=== PATIENT | female | born 1990 | race Caucasian/White ===

== ENCOUNTER 2024-12-08 12:37 | Outpatient (CLI) | payer BC, SELFPAY ==
--- OUTSIDE RECORDS SUMMARY | 2024-12-08 12:40 | XMS_ITS | Clinical Summary ---
Author Organization [facility] Address [address] [place] [address] Care Team Providers Care Corporate Manager Name Role Phone Unavailable Primary Care Provider Unavailabl e Social History Tobacco Use Types Packs/Day Years Used Date Smoking Tobacco: Never Assessed Comments Unknown Sex and Gender Information Value Date Recorded Sex Assigned at Not on file Legal Sex Female 9:44 PM CDT Gender Identity Not on file Sexual Orientation Not on file Plan of Treatment Health Maintenance Due Date Last Done Comments Hepatitis C Virus (HCV) Screening 1989 TdaP Immunization 1989 Pap Smear 2010 Cervical Cancer Screening (CCS) 2019 HPV/Cotest 2019 Influenza Immunization (#1) 2024 SARS-COV-2 Immunization ( season) 2024 Respiratory Syncytial Virus (RSV) Immunization (Adult) (1 - 1-dose 75+ series) 2064 DTaP/Tdap/Td Immunization Discontinued 1993, 02/24/1991, 12/06/1990, Additional history exists Hepatitis B Immunization Completed 997, 04/03/1996, 02/26/1996 Meningococcal Immunization (ACWY) Aged Out No longer eligible based on patient's age to complete this topic Pneumococcal Immunization Combined Aged Out No longer eligible based on patient's age to complete this topic Rotavirus Immunization Aged Out No lo nger eligible based on patient's age to complete this topic
--- OUTSIDE RECORDS SUMMARY | 2024-12-08 12:40 | XMS_ITS | Referral Summary ---
Author Organization [facility] Address [address] [place] [address] Care Team Providers Care Internal Salesperson Name Role Phone Karlie Reyes Unavailable Enrique Hurtado DO Unavailable [phone] Kory Lucio MD Unavailable [phone] Lona Diamond NP Primary Care Provider [phone] Encounters Date Type Department Care Team Description 11/26/2024 3:15 PM CDT Telemedicine [facility] Surgery [address] [place] [address] Medical Office Building [address] [place] [address] Kory Lucio MD Colostomy care (HCC) (Primary Dx) from Last 3 Months Allergies No known active allergies Medications metoprolol tartrate (LOPRESSOR) 25 mg immediate release tabletIndicatio ns:hypertension Take 12.5 mg by mouth 2 (two) times a day 1 Active ibuprofen (ADVIL,MOTRIN) 600 mg tabletIndicatio ns:Pain Take 600 mg by mouth every 8 (eight) hours as needed for pain. Indications: pain Active ferrous sulfate 325 mg (65 mg of elemental iron) tabletIndicatio ns:Iron Deficiency Anemia Take 65 mg of elemental iron by mouth daily with breakfast. Indications: anemia from inadequate iron Active Vraylar 1.5 mg capsule Take 1.5 mg by mouth daily 3 Active disulfiram (Antabuse) 250 mg tabletIndicatio ns:alcoholism Take 1 tablet (250 mg total) by mouth daily 30 tablet 1 3 Active ostomy supplies misc Patient has a parastomal hernia and needs a Coloplast Brava support belt 79476 1 each 6 3 Active Active Problems Problem Noted Date Diagnosed Date Colostomy care 10/25/2022 Screening for diabetes mellitus 09/11/2022 Absolute anemia 09/11/2022 Alcohol dependence, uncomplicated 03/01/2022 Alcohol abuse 01/16/2022 Assessment & Plan (03/01/2022 10:59 AM CDT): Continue with antabuse, advised her to continue to abstain from alcohol. Encouraged her to follow up with her psychiatrist, discuss her overeating and medications to evaluate for potential hindrances to her attempts at weight management. Assessment & Plan (01/16/2022 8:33 PM CDT): Will initiate antabuse. She was advise that she cannot drink any alcohol while taking antabuse. She was advised to arrange appt with a psychiatrist - she will be provided with a list of local providers and pursue an appt. Cyst of ovary 01/16/2022 Assessment & Plan (01/16/2022 8:33 PM CDT): We reviewed recent abdominal US and ct from ER Advised transvaginal US and pap smear - appt for pap made while on video call Severe episode of recurrent major depressive disorder, without psychotic features 01/16/2022 Assessment & Plan (01/16/2022 8:34 PM CDT): She was advised continued appts with psychiatrist - she declines medication at this time. Gastroesophageal reflux disease without esophagi tis 12/12/2021 Irritable bowel syndrome 12/12/2021 Posttraumatic stress disorder 12/12/2021 Restless legs 12/12/2021 Abdominal bloating 12/12/2021 Assessment & Plan (01/16/2022 8:32 PM CDT): We reviewed recent abdominal US and ct from ER Will communicate with Dr. Bass for his review of imaging, advised her to continue to work with his office regarding symptoms Advised transvaginal US and pap smear - appt for pap made while on video call Assessment & Plan (12/12/2021 10:33 AM CDT): Discussed potential etiologies. Will evaluate further with abd US - she will call and schedule at facility of choice. Encouraged cutting back on fiber as it may be contributing. Advised scheduling annual pap. Mild malnutrition 10/05/2021 Diverticulitis 08/17/2021 Vitamin D deficiency 09/27/2020 Obstructive sleep apnea 09/16/2020 Assessment & Plan (12/12/2021 10:32 AM CDT): Encouraged f/u appt with quill winder regarding settings of machine due to recent weight loss Anxiety 08/25/2020 Chronic fatigue syndrome 08/25/2020 BMI 60.0-69.9, adult 08/25/2020 Palpitations 08/25/2020 Assessment & Plan (12/12/2021 10:32 AM CDT): Continue with lopressor at this time Nicotine dependence, unspecified, uncomplicated 08/25/2020 Prediabetes 08/16/2020 Assessment & Plan (12/12/2021 10:32 AM CDT): Fasting labs entered, will notify patient of results as available Encouraged continued attempts at heart healthy diet, weight loss Major depressive disorder, single episode, unspe cified 11/25/2019 Dyslipidemia 07/21/2019 Assessment & Plan (12/12/2021 10:31 AM CDT): Fasting labs entered, will notify patient of results as available Resolved Problems Problem Noted Date Diagnosed Date Resolved Date Schizoaffective disorder, depressive type 12/12/2021 12/12/2021 Bradycardia 09/28/2020 12/12/2021 Tachycardia 08/25/2020 12/12/2021 Hypertension 11/09/2015 12/12/2021 Immunizations Immunization Administration Dates Next Due Influenza, Unspecified 09/11/2022(Deferr ed: Patient Refused),08/10/2021(Deferred: Patient Refused) Social History Tobacco Use Types Packs/Day Years Used Date Smoking Tobacco: Every Day Cigarettes Vaping Smokeless Tobacco: Never Tobacco Cessation:Ready to Q uit: Not Asked; Counseling Given: Not Answered Alcohol Use Standard Drinks/Week Comments Yes 0 (1 standard drink = 0.6 oz pur e alcohol) socially Social Connection and Isolation Panel [NHANES] A nswer Date Recorded In a typical week, how many times do you talk on the phone with family, friends, or neighbors? Three times a week 10/04/19 How often do you get togethe r with friends or relatives? Twice a week 10/03/2021 How often do you attend chur ch or congregational services? 1 to 4 times per year 10/03/2021 Do you belong to any clubs o r organizations such as mosque groups, unions, fraternal or athletic groups, or school groups? No 10/03/2021 How often do you attend meet ings of the clubs or organizations you belong to? Never 10/03/2021 Are you , , di vorced, , never , or living with a partner? Never 10/03/2021 AUDIT-C Answer Date Recorded Q1: How often do you have a drink containing alcohol? 4 or more times a week 09/11/2022 Q2: How many drinks containi ng alcohol do you have on a typical day when you are drinking? 5 or 6 Q3: How often do you have si x or more drinks on one occasion? Monthly 09/11/2022 Overall Financial Resource Strain (CARDIA) Answe r Date Recorded How hard is it for you to pa y for the very basics like food, housing, medical care, and heating? Somewhat hard 10/03/2021 PHQ-2 Answer Date Recorded PHQ-2 Total Score (If total score is 3 or more points, staff should administer the PHQ-9) 4 09/11/2022 Hunger Vital Sign Answer Date Recorded Within the past 12 months, y ou worried that your food would run out before you got the money to buy more. Never true 10/04/19 22 Within the past 12 months, t he food you bought just didn't last and you didn't have money to get more. Never true 10/03/2021 PRAPARE - Transportation Answer Date Re corded In the past 12 months, has l ack of transportation kept you from medical appointments or from getting medications? No 09/07 In the past 12 months, has l ack of transportation kept you from meetings, work, or from getting things needed for daily living? No 10/03/2021 Comments No Sex and Gender Information Value Date Recorded Sex Assigned at Not on file Legal Sex Female 9:02 AM INFORMATION TECHNOLOGY MANAGER Gender Identity Not on file Sexual Orientation Not on file Last Filed Vital Signs Vital Sign Reading Time Taken Comments Blood Pressure 168/115 10/25/2022 9:58 AM CDT Pulse 73 10/25/2022 9:58 AM CDT Temperature 37.3 C (99.1 F) 09/11/2022 8:12 AM INFORMATION TECHNOLOGY MANAGER Respiratory Rate 18 01/19/2022 1:08 PM CDT Oxygen Saturation 99% 10/25/2022 9:58 AM CDT Inhaled Oxygen Concentration - - Weight 179.2 kg (395 lb) 10/25/2022 9:58 AM CDT Height 170.2 cm (5' 7) 10/25/2022 9:58 AM CDT Body Mass Index 61.87 10/25/2022 9:58 AM CDT Plan of Treatment Not on file Insurance [facility] [place] [address] [facility] [employer] [facility] Advance Directives For more information, please contact: [phone] * Full Code (Latest Code Status on File) Date Activated Date Inactivated Comments 11/04/2021 3:35 PM 11/11/2021 8:56 PM * Full Code Date Activated Date Inactivated Comments 09/30/2021 12:52 PM 10/09/2021 5:00 PM * Full Code Date Activated Date Inactivated Comments 09/08/2021 1:07 AM 09/14/2021 5:41 PM Care Teams Internal Salesperson Relationship Specialty Start Date End Date Lona Diamond NP [address] [place] [address] PCP - General Internal Medicine 08/15/22 Karlie Reyes PA Ground Host/Hostess 10/31/21 Enrique Hurtado DO [address] [place] [address] Referring Physician Surgery 08/30/21 Kory Lucio MD [address] [facility] [address] [place] [address] Surgeon Colon and Rectal Surgery 10/20/21
--- OUTSIDE RECORDS SUMMARY | 2024-12-08 12:40 | XMS_ITS | Continuity of Care Document ---
Author Organization [facility] Address [address] [place] [address] [place] [address] Phone Care Team Providers Care Chef Head Name Role Phone Kofi Zacarias MD Unavailable Unavailable Allergies, Adverse Reactions, Alerts Substance Reaction Status Criticality No Known Allergies Active No Inform ation Medications Medication Instructions Dosage Effective Dates (start - stop) Status Comments Norvasc 10 mg tablet take 1 tablet by or al route every day 10 MG - Active Procedures Procedure Date OFFICE/OUTPATIENT VISIT, EST OFFICE/OUTPATIENT VISIT, EST PREV VISIT, NEW, AGE 18-39 Advance Directives Directive Yes / No Effective Date File Name No Information Encounters Encounter Description Practice Location Reason(s) For Visit Diagnoses Date Provider Providers Copied on Encounter OFFICE/OUTPA TIENT VISIT, EST [facility], [address], [place], [place], [id number], [place] tel:[phone] [facility] HTN (chief complaint) hematuria1 (chief complaint) fatty liver (chief complaint) Essential (primary) hypertensionHematur iaFatty liver Oct-2 0 6 [address], [place], [id number] , [place]. tel:[phone] Referring Provider: Kofi Zacarias, [address], [place], [place], [id number]. tel:[phone] [facility], [address], [place], [place], [id number], [place] tel:[phone] [facility] No Information [address], [place], [place], [id number] , [place]. tel:[phone] OFFICE/OUTPA TIENT VISIT, EST [facility], [address], [place], [place], [id number], [place] tel:[phone] [facility] chest pain1 (chief complaint) HTN1 (chief complaint) LFT1 (chief complaint) depression 1 (chief complaint) Other chest painEssential (primary) hypertensionLiver disease, unspecifiedHematuri a [address], [place], [place], [id number] , [place]. tel:[phone] Referring Provider: Reji Esparza Erika [facility] [address], [place], [place], [id number]. tel:[phone] PREV VISIT, NEW, AGE 18-39 [facility], [address], [place], [place], [id number], [place] tel:[phone] [facility] PHysical (chief complaint) Dietary surveillance and counselingRoutine medical exam [address], [place], [place], [id number] , [place]. tel:[phone] Referring Provider: Reji Esparza Erika [facility] [address], [place], [place], [id number]. tel:[phone] Family History Family Member Type Diagnosis Age At Onset Brother Problem (finding) Alive and well Mother Problem (finding) Diabetes mellitus type 2 Father Problem (finding) Unknown Payers Payer name Insurance type Covered green party ID Authoriza tion(s) No Information Social History Type Description Quantity Date Captured Comments Alcohol Use Details Caffeine Use Details Unknown Tobacco Use Status Moderate cigarette smoker (10-19 cigs/day) Smoking Status Heavy tobacco smoker Smoking Tobacco Use Details Cigarette: No Details Available Cigarette: 10 Cigarettes per day Sex Female Vital Signs Date / Time: Height Weight BMI Pulse Rate Blood Pressure Temperature Respiratory Rate Body Surface Area Head Circumference BMI percentile Pulse Ox Inhaled Ox 9:44 AM 171.45 cm 373.00 lbs 57.5 6 kg/m eter (2) 100 /min 130/82 mm[Hg] 96.3 F 20 /min Chief Complaint And Reason For Visit From encounter dated '10/27/2015 08:30'. HTN (chief complaint). Description: Pt has histor of HTN. Pt recently went to Er and her BP was mildly high. Pt continues to have intermittent nonexertional chest pain. Pt lost her insurance and she never followed up with cardiology. Pt denies any acute chest pain. Pt c/o sharp pain around midsternal area 2-3 per week. hematuria1 (chief complaint). Description: Pt denies any UTI symptoms fatty liver (chief complaint). Description: Pt has fatty liver due to obesity. Pt denies any abd pain Plan Of Treatment Date Type Action Status Referral Ordered: Cardiology (related to Other chest pain) ordered Referral Ordered: US EXAM, ABDOM, COMPLETE ordered Referral Ordered: Referrals: Cardiology. Evaluate and treat ordered Referral Ordered: DOPPLER ECHO EXAM, HEART ordered History Of Present Illness Encounter Date Complaint History Of Prese nt Illness HTN Pt has histor of HTN. Pt recently went to Er and her BP was mildly high. Pt continues to have intermittent nonexertional chest pain. Pt lost her insurance and she never followed up with cardiology. Pt denies any acute chest pain. Pt c/o sharp pain around midsternal area 2-3 per week. hematuria1 Pt denies any UT I symptoms fatty liver Pt has fatty cathi er due to obesity. Pt denies any abd pain chest pain1 Pt has intermitt net sharp left side chest pain and also dull right side chest pain with radiation down to both arm for several years. pt had benign cardaiac echo recently. Howver, she does have poor peneration due to body habitus. Pt denies any chest pain now. Pt has chest pain during anxiety per pt HTN1 Pt has HTN and s he is on norvasc. Her BP ok today LFT1 Pt has mild elev ation of LFT and low vitamin D and hematuria. Pt denies any UTI symptoms depression1 Pt recently admi hilaria to hospital for depression and suiciadl thought. Pt is on celexa now. Pt denies any suicidal thought. Pt has appointment with psychiatry soon. PHysical 25 yo female nee ds annual physical. Pt is obese. Pt gained about 100 pounds during last two years. Pt feels fatigue all the time. Pt denies any snorning or trouble with breathing at night. pt wants physical. Pt had some atypical chest pain back in February but has not had it for several weeks. Pt denies any exertaionl chest pain. Pt notices sharp pain around midsternal area. Pt notices radiation of pain to both shoudler. Pt did have a lot of anxiety issue during that period. Pt has not had any chest pain since midaugust Pt denies any other complaints Instructions Date Instruction Additional Infor oni Prescribed Activity and Exercise Education Related to Dietary Surveillance and Counseling Prescribed Diet Educ ation/Lifestyle Education Regarding Diet Related to Dietary Surveillance and Counseling Prescribed Activity and Exercise Education Related to Dietary Surveillance and Counseling Prescribed Diet Educ ation/Lifestyle Education Regarding Diet Related to Dietary Surveillance and Counseling Assessments Type Assessment Date assessment Essential (primary) hypertension assessment Hematuria assessment Fatty liver Mental Status Date Cognitive Assessment Orientation - [place] ed to time, place, person, situation.
--- OUTSIDE RECORDS SUMMARY | 2024-12-08 12:40 | XMS_ITS | Clinical Summary ---
Author Organization [facility] Address [address] [place] [address] Care Team Providers Care Promotions Assistant Name Role Phone Karlie Reyes Unavailable [phone] Enrique Hurtado DO Unavailable [phone] Kory Lucio MD Unavailable [phone] Lona Diamond NP Primary Care Provider [phone] Allergies No known active allergies Medications metoprolol [...] and needs a Coloplast Brava support belt 57864 1 each 6 3 Active Active Problems [...] Discussed potential etiologies. Will evaluate further with yaneth US - she will call and schedule at facility of choice. Encouraged cutting back on fiber as it may be contributing. Advised scheduling annual pap. Mild malnutrition 10/05/2021 Diverticulitis 08/17/2021 Vitamin D deficiency 09/27/2020 Obstructive sleep apnea 09/16/2020 Assessment & Plan (12/12/2021 10:32 AM CDT): Encouraged f/u appt with development trainer regarding settings of machine due to recent [...] 12/12/2021 Tachycardia 08/25/2020 12/12/2021 Hypertension 11/09/2015 12/12/2021 Encounters Date Type Department Care Team Description 11/26/2024 3:15 PM CDT Telemedicine [facility] Surgery [address] [place] [address] Medical Office Building [address] [place] [address] Kory Lucio MD Colostomy care (HCC) (Primary Dx) from Last 3 Months Immunizations Immunization Administration Dates Next Due Influenza, Unspecified 09/11/2022(Deferr ed: Patient Refused),08/10/2021(Deferred: Patient Refused) Surgical History Surgery Date Site/Laterality Comments CENTRAL LINE PLACEMENT > 5 YEARS 10/05/2021 N/A COLECTOMY CYSTOGRAM Medical History Medical History Date Comments Hx Other Medical back pain; Comm ents: DWL 01/06/2016 - Depression Depression Hypertension Hypertension Type 2 diabetes mellitus wit hout complication (HCC) 08/16/2020 Anxiety Sleep apnea Family History Medical History Relation Name Comments Mental illness Brother Mental illness Father Mental illness Maternal Grandfather Cancer Maternal Grandmother Diabetes Maternal Grandmother Mental illness Maternal Grandmother Diabetes Mother Mental illness Mother Relation Name Status Comments Brother Father Maternal Grandfather Maternal Grandmother Mother Social History Tobacco Use Types Packs/Day Years [...] 10/03/2021 How often do you attend chur or scientologist services? 1 to 4 times per year 10/03/2021 Do you belong to any clubs o r organizations such as restorationist groups, unions, fraternal or athletic groups, or [...] on file Legal Sex Female 9:02 AM BAND RIPSAW OPERATOR Gender Identity Not on file Sexual Orientation Not on file Obstetrics History Last Filed Vital Signs Vital Sign Reading Time Taken Comments Blood Pressure 168/115 10/25/2022 9:58 AM CDT Pulse 73 10/25/2022 9:58 AM CDT Temperature 37.3 C (99.1 F) 09/11/2022 8:12 AM BAND RIPSAW OPERATOR Respiratory Rate 18 01/19/2022 1:08 PM CDT Oxygen Saturation 99% 10/25/2022 9:58 AM CDT Inhaled Oxygen Concentration - - Weight 179.2 kg (395 lb) 10/25/2022 9:58 AM CDT Height 170.2 cm (5' 7) 10/25/2022 9:58 AM CDT Body Mass Index 61.87 10/25/2022 9:58 AM CDT Plan of Treatment Health Maintenance Due Date Last Done Comments Cervical Cancer Screening 1989 Hepatitis C Screening 1989 DTaP/Tdap/Td Vaccine (5 - Tdap) 2000 02/14/1994, 02/24/1991, 12/06/1990, Additional history exists Varicella Vaccines (1 of 2 - 13+ 2-dose series) 2002 Pneumococcal vaccine <65 (1 of 2 - PCV) 2008 Depression Screening 09/12/2023 09/11/2022, 09/11/2022, 01/16/2022, Additional history exists Regular Well Visit/Exam 18-64 09/12/2023 09/11/2022 Influenza Vaccine (Season Ended) 2025 Hepatitis B Screening Completed 08/28/1996 , 04/03/1996, 02/26/1996 HPV Vaccines Aged Out No longer eligi ble based on patient's age to complete this topic Insurance [facility] MEDICAID [facility] Advance Directives For more information, please contact: [phone] * Full Code (Latest Code Status on File) Date Activated Date Inactivated Comments 11/04/2021 3:35 PM 11/11/2021 8:56 PM * Full Code Date Activated Date Inactivated Comments 09/30/2021 12:52 PM 10/09/2021 5:00 PM * Full Code Date Activated Date Inactivated Comments 09/08/2021 1:07 AM 09/14/2021 5:41 PM Care Teams Promotions Assistant Relationship Specialty Start Date End Date Lona Diamond NP [address] [place] [address] PCP - General Internal Medicine 08/15/22 Karlie Reyes PA Bellhop Service Captain 10/31/21 Enrique Hurtado DO [address] [place] [address] Referring Physician Surgery 08/30/21 Kory Lucio MD [address] [place] [address] Surgeon Colon and Rectal Surgery 10/20/21
[2024-12-08 15:54] LABS: Kit Draw Collected
== END 2024-12-08 12:38 | disposition home or self-care (01) ==
LOC: ANHGOSHLAB 12:38
PROVIDERS: PCP Student in an Organized Health Care Education/Training Program; Visit Provider Student in an Organized Health Care Education/Training Program
DX: F10.20 Alcohol dependence, uncomplicated (principal); I10 Essential (primary) hypertension; E66.9 Obesity, unspecified; Z13.0 Encounter for screening for diseases of the blood and blood-forming organs and certain disorders involving the immune mechanism
CPT/HCPCS: 36415

== ENCOUNTER 2025-03-12 09:06 | Outpatient (CLI) | payer BC, SELFPAY ==
--- OUTSIDE RECORDS SUMMARY | 2025-03-12 09:20 | XMS_ITS | Clinical Summary ---
Author Organization [facility] Address [address] [place] [address] Care Team Providers Care Coal Chute Worker Name Role Phone Karlie Reyes Unavailable [phone] Enrique Hurtado DO Unavailable [phone] Kory Lucio MD Unavailable [phone] Lona Diamond NP Primary Care Provider [phone] Allergies No known active allergies Medications metoprolol [...] and needs a Coloplast Brava support belt 01177 1 each 6 3 Active Active Problems [...] potential etiologies. Will evaluate further with yaneth MADISON - she will call and schedule at facility of choice. Encouraged cutting back on fiber as it may be contributing. Advised scheduling annual pap. Mild malnutrition 10/05/2021 Diverticulitis 08/17/2021 Vitamin D deficiency 09/27/2020 Obstructive sleep apnea 09/16/2020 Assessment & Plan (12/12/2021 10:32 AM CDT): Encouraged f/u appt with speech coach regarding settings of machine due to recent [...] alcohol) socially Social Connection and Isolation Panel Answer Date Recorded In a typical week, how many times do you talk on the phone with family, friends, or neighbors? Three times a week 10/04/19 How often do you get togethe r with friends or relatives? Twice a week 10/03/2021 How often do you attend [facility] or sabianist services? 1 to 4 times per year 10/03/2021 Do you belong to any clubs o r organizations such as presybeterian groups, unions, fraternal or athletic groups, or [...] on file Legal Sex Female 9:02 AM KITCHEN WORKER Gender Identity Not on file Sexual Orientation Not on file Obstetrics History Last Filed Vital Signs Vital Sign Reading Time Taken Comments Blood Pressure 168/115 10/25/2022 9:58 AM CDT Pulse 73 10/25/2022 9:58 AM CDT Temperature 37.3 C (99.1 F) 09/11/2022 8:12 AM KITCHEN WORKER Respiratory Rate 18 01/19/2022 1:08 PM CDT [...] <65 (1 of 2 - PCV) 2008 HPV Vaccines (1 - 3-dose SCD M series) 2016 Depression Screening 09/12/2023 09/11/2022, 09/11/2022, 01/16/2022, Additional history exists Regular Well Visit/Exam 18-64 09/12/2023 09/11/2022 Influenza Vaccine (#1) 2025 Hepatitis B Screening Completed 08/28/1996 , 04/03/1996, 02/26/1996 Insurance [facility] MEDICAID [facility] ANTH ACCESS [facility] Advance Directives For more information, please contact: [phone] * Full Code (Latest Code Status on File) Date Activated Date Inactivated Comments 11/04/2021 3:35 PM 11/11/2021 8:56 PM * Full Code Date Activated Date Inactivated Comments 09/30/2021 12:52 PM 10/09/2021 5:00 PM * Full Code Date Activated Date Inactivated Comments 09/08/2021 1:07 AM 09/14/2021 5:41 PM Care Teams Coal Chute Worker Relationship Specialty Start Date End Date Lona Diamond [employer]ARM[employer] [address] [place] [address] PCP - General Internal Medicine 08/15/22 Karlie Reyes PA Underwriting Account Representative 10/31/21 Enrique Hurtado DO [address] [facility] [address] [place] [address] Referring Physician Surgery 08/30/21 Kory Lucio MD [address] [facility] [address] [place] [address] Surgeon Colon and Rectal Surgery 10/20/21
--- OUTSIDE RECORDS SUMMARY | 2025-03-12 09:20 | XMS_ITS | Patient Health Record ---
Author Organization [facility] Address [address] [place] [address] Care Team Providers Care Shore Working Supervisor Name Role Phone Hannah Delaney Primary Care Provider Allergies No Known Allergies Reason For Referral No Information Medications Medication SIG (Take, Route, Frequency, Duration) Notes Start Date End Date Status Vraylar 3 MG 1 capsule Orally Once a day; Duration: 30 days Active lamoTRIgine 25 MG 2 tablets Orally Once a day; Duration: 14 days Pt needs appt Active Vraylar 3 MG TAKE 1 CAPSULE BY MOUTH EVERY DAY; Duration: 30 Active Ibuprofen 200 MG 3tablets with food or milk as needed Orally every 8 hrs OTC Active Metoprolol Tartrate 25 MG 0.5 tablet Ora lly Twice a day Active Famotidine 20 MG 1 tablet Orally Twice a day Active Acetaminophen 325 MG 2 tablets as needed Orally every 8 hrs OTC Active Phenazopyridine HCl Active Tums 500 MG 1 tablet as needed Orally Once a day Active Social History Tobacco Use: Social History Observation Description Date Details (start date - stop date) Current Smoker NA - NA Sex Assigned At : Social History Observation Description Sex Assigned At Female Dont use, Tobacco Use/Smoking Question Answer Notes Are you a current smoker How often do you smoke cigarettes? every day How many cigarettes a day do you smoke? 6-10 Alcohol Screen (Audit-C) Question Answer Notes Did you have a drink containing alcohol in the p ast year? No Points 0 Interpretation Negative PRAPARE Question Answer Notes PRAPARE Score: 1 Section Notes: how 10 entries Search: PRESCRIPTION # FILLED WRITTEN DRUG LABEL QTY DAYS STRENGTH MEDD PRESCR[facility] REFILL NO. REFILLS STATE 12/01/2021 12/01/2021 traMADol 15.0 3 50 MG 25 Kory Lucio) - [id number] [place], [place] NA 0 [place] 1 [id number] 11/17/2021 11/17/2021 oxyCODONE HCL 15.0 3 10 MG 75.0 Kory Lucio) - [id number] No recent per PDMP Problems Problem Type SNOMED Code ICD Code Onset Dates Problem Status W/U Status Risk Notes Problem Morbid obesity (disorder) (355892269) Morbid (severe) obesity due to excess calories (E66.01) Active confirmed Problem Tobacco user (511306448) Nicotine dependence, unspecified, uncomplicated (F17.200) Active confirmed Problem Palpitations (42729154) Palpitations (R00.2) Active confirmed Problem Hypertension (65923666) Hypertension (I10) 016 Active confirmed Problem Depression (715017762) Depression (F32.9) 020 Active confirmed Problem Alcohol abuse (49865780) Alcohol abuse (F10.10) Active confirmed Problem Posttraumatic stress disorder (47473273) PTSD (post-traumatic stress disorder) (F43.10) Active confirmed Problem Anxiety (18974676) Anxiety (F41.9) Active confi rmed Problem Vitamin D deficiency (48104636) Vitamin D deficiency (E55.9) Active confirmed Problem Obstructive sleep apnea (24727792) Obstructive sleep apnea (G47.33) Active confirmed Problem Dyslipidemia (600611204) Dyslipidemia (E78.5) 020 Active confirmed Problem Chronic fatigue syndrome (17761982) Chronic fatigue (R53.82) Active confirmed Problem Bipolar disorder (49604959) Bipolar 1 disorder, depressed (F31.9) Active confirmed Problem Type II diabetes mellitus without complication (210712311) Type 2 diabetes mellitus without complication, without long-term current use of insulin (E11.9) 021 Active confirmed Problem Gastroesophageal reflux disease without esophagitis (457815302) Gastroesophageal reflux disease without esophagitis (K21.9) Active confirmed Problem Tobacco use (965874282) Tobacco use disorder (F17.200) Active confirmed Problem Irritable bowel syndrome (80347267) Irritable bowel syndrome with both constipation and diarrhea (K58.2) Active confirmed Problem Restless legs (76659579) Restless leg (G25.81) Active confirmed Plan Of Treatment Pending Test Test Name Order Date At Home SARS-CoV-2, JASPER 05/30/2021 At Home SARS-CoV-2, JASPER 03/13/2022 At Home SARS-CoV-2, JASPER 03/27/2022 Future Test Test Name Order Date Testosterone,Free and Total 08/11/2020 Hemoglobin A1c* 08/11/2020 Prolactin 08/11/2020 CBC With Differential/Platelet* 08/11/19 21 FSH and LH 08/11/2020 Vitamin D, 25-Hydroxy* 08/11/2020 Lipid Panel* 08/11/2020 CMP 14 Comprehensive Metabolic Panel* TSH Rfx on Abnormal to Free T4 1 Electrocardiogram (EKG) 09/01/2020 Insurance Providers Payer Name Payer Address Payer Phone Subscriber Number Group Number Insured Name Patient Relationship to Insured Coverage Start Date Coverage End Date [employer] [facility] Attn Claims Department [address] [place] [address] [id number] Yahaira Thomas Self - patient is the insured 1 [employer] Attn Claims Department [address] [place] [id number] Yahaira Thomas Self - patient is the insured 1 Medical (General) History Medical History History ICD Code Hypertension Bipolar disorder obesity Knee pain, left M25.562 Obstructive sleep apnea G47.33 Gastroesophageal reflux disease without esophagitis K21.9 Type 2 diabetes mellitus wit hout complication, without long-term current use of insulin E11.9 Irritable bowel syndrome with both const ipation and diarrhea K58.2 Surgical History Surgery Date(Month/Year) Colon Resection [facility] 10/2021 Hospitalization History Reason Date(Month/Year) Diverticulitis-[facility] 3 stays in September [address] [place] [address] after suicide attempt 1
--- OUTSIDE RECORDS SUMMARY | 2025-03-12 09:20 | XMS_ITS | Clinical Summary ---
Author Organization [facility] Address [address] [place] [address] Care Team Providers Care Catch Basin Cleaner Name Role Phone Unavailable Primary Care Provider [...] 1989 TdaP Immunization 1989 Pap Smear 2010 Human Papillomavirus (HPV) Immunization (1 - 3-dose SCDM series) 2016 Cervical Cancer Screening (CCS) 2019 HPV/Cotest 2019 SARS-COV-2 Immunization ( season) 2024 Influenza Immunization (#1) 2025 Respiratory Syncytial Virus (RSV) Immunization (Adult) (1 [...]
== END 2025-03-12 09:07 | disposition home or self-care (01) ==
LOC: ANHGOSHLAB 09:07
PROVIDERS: PCP Student in an Organized Health Care Education/Training Program; Visit Provider Student in an Organized Health Care Education/Training Program
DX: E11.69 Type 2 diabetes mellitus with other specified complication (principal); E78.5 Hyperlipidemia, unspecified; R79.89 Other specified abnormal findings of blood chemistry; E66.813 Obesity, class 3; Z68.43 Body mass index [BMI] 50.0-59.9, adult; D50.9 Iron deficiency anemia, unspecified
CPT/HCPCS: 36415

== ENCOUNTER 2025-03-12 09:26 | Outpatient (CLI) | payer BC, SELFPAY ==
--- NOTE | ~2025-03-12 | XR_ITS ---
Examination: XR thoracic spine 3V Clinical History: Low back pain, unspecified, pain x 3 months, fall in december Comparison: CT abdomen and pelvis 12/12/2021 Technique: 2 views thoracic spine Findings: Visualized heart and lungs unremarkable. Trace anterior wedge deformity of T9 and T10 unchanged. No acute fracture. No listhesis. Minimal degenerative changes. IMPRESSION: 1. No acute abnormality. Reviewed, dictated and finalized at location R. IMPRESSION: 1. No acute abnormality.
--- NOTE | ~2025-03-12 | XR_ITS ---
Lumbar spine series Indication: Low back pain Comparison: CT abdomen and pelvis 12/12/2021 Technique: 5 views lumbar spine Findings: 5 nonrib-bearing lumbar-type vertebral bodies. No acute fracture. No listhesis. No pars defect. Vertebral bodies normal height. Disc spaces maintained. Mild degenerative changes. SI joints congruent. Sacrum intact. IMPRESSION: 1. No acute findings. Reviewed, dictated and finalized at location R. IMPRESSION: 1. No acute findings.
== END 2025-03-12 09:27 | disposition home or self-care (01) ==
PROVIDERS: PCP Student in an Organized Health Care Education/Training Program; Visit Provider Student in an Organized Health Care Education/Training Program
DX: M54.50 Low back pain, unspecified (principal)
CPT/HCPCS: 72072; 72110

== ENCOUNTER 2025-03-30 01:24 | Observation (INO) | payer BC, SELFPAY ==
[2025-03-30] VITALS (22 sets, daily range): BP systolic 130–169; BP diastolic 72–113; PULSE 63–115; RESP 14–24; TEMP 36.6–37.2; O2SAT 94–100; BMI 50.6
--- OUTSIDE RECORDS SUMMARY | 2025-03-30 01:27 | XMS_ITS | Patient Health Record ---
Author Organization [facility] Address [address] [place] [address] Care Team Providers Care Celery Wrapper Name Role Phone Hannah Delaney Primary Care [...] 3 50 MG 25 Kory Lucio) - [id number] [place], [place] NA 0 [place] 1 [id number] 11/17/2021 11/17/2021 oxyCODONE HCL 15.0 3 10 MG 75.0 Kory Lucio) - [id number] No recent per PDMP Problems Problem Type SNOMED Code ICD Code Onset Dates Problem Status W/U Status Risk Notes Problem Morbid obesity (disorder) (537473132) Morbid (severe) obesity due to excess calories (E66.01) Active confirmed Problem Tobacco user (573776403) Nicotine dependence, unspecified, uncomplicated (F17.200) Active confirmed Problem Palpitations (93262291) Palpitations (R00.2) Active confirmed Problem Hypertension (29751568) Hypertension (I10) 016 Active confirmed Problem Depression (227261702) Depression (F32.9) 020 Active confirmed Problem Alcohol abuse (79236268) Alcohol abuse (F10.10) Active confirmed Problem Posttraumatic stress disorder (02224795) PTSD (post-traumatic stress disorder) (F43.10) Active confirmed Problem Anxiety (39959632) Anxiety (F41.9) Active confi rmed Problem Vitamin D deficiency (78124514) Vitamin D deficiency (E55.9) Active confirmed Problem Obstructive sleep apnea (01474821) Obstructive sleep apnea (G47.33) Active confirmed Problem Dyslipidemia (463732923) Dyslipidemia (E78.5) 020 Active confirmed Problem Chronic fatigue syndrome (47302848) Chronic fatigue (R53.82) Active confirmed Problem Bipolar disorder (06899120) Bipolar 1 disorder, depressed (F31.9) Active confirmed Problem Type II diabetes mellitus without complication (557505010) Type 2 diabetes mellitus without complication, without long-term current use of insulin (E11.9) 021 Active confirmed Problem Gastroesophageal reflux disease without esophagitis (895833722) Gastroesophageal reflux disease without esophagitis (K21.9) Active confirmed Problem Tobacco use (481491857) Tobacco use disorder (F17.200) Active confirmed Problem Irritable bowel syndrome (76653092) Irritable bowel syndrome with both constipation and diarrhea (K58.2) Active confirmed Problem Restless legs (85770129) Restless leg (G25.81) Active confirmed Plan Of [...] Insured Coverage Start Date Coverage End Date [employer] [facility] Attn Claims Department [address] [place] [address] [id number] Yahaira Thomas Self - patient is the insured 1 [employer] Attn Claims Department [address] [place] [phone] [id number] Yahaira Thomas Self - patient is the [...] K58.2 Surgical History Surgery Date(Month/Year) Colon Resection [facility] 10/2021 Hospitalization History Reason Date(Month/Year) Diverticulitis-[facility] 3 stays in September [address] [place] [address] after suicide attempt 1
--- OUTSIDE RECORDS SUMMARY | 2025-03-30 01:27 | XMS_ITS | Clinical Summary ---
Author Organization [facility] Address [address] [place] [address] Care Team Providers Care Secret Code Expert Name Role Phone Karlie Reyes Unavailable [phone] Enrique Hurtado DO Unavailable [phone] Kory Lucio MD Unavailable [phone] Lona Diamond NP Primary Care Provider [phone] Allergies No known active allergies Medications metoprolol [...] and needs a Coloplast Brava support belt 18095 1 each 6 3 Active Active Problems [...] 10:32 AM CDT): Encouraged f/u appt with hand booked folder and stitcher regarding settings of machine due to recent [...] week 10/03/2021 How often do you attend [facility] or holiness services? 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 Gender Identity Not on file Sexual Orientation Not on file Obstetrics History Last Filed Vital Signs Vital Sign Reading Time Taken Comments Blood Pressure 168/115 10/25/2022 9:58 AM CDT Pulse 73 10/25/2022 9:58 AM CDT Temperature 37.3 C (99.1 F) 09/11/2022 8:12 AM JEWEL CUPPING MACHINE OPERATOR Respiratory Rate 18 01/19/2022 1:08 PM [...] Screening Completed 08/28/1996 , 04/03/1996, 02/26/1996 Insurance [facility] MEDICAID [facility] ANTH ACCESS [facility] Advance Directives For more information, please contact: [phone] * Full Code (Latest Code Status on File) Date Activated Date Inactivated Comments 11/04/2021 3:35 PM 11/11/2021 8:56 PM * Full Code Date Activated Date Inactivated Comments 09/30/2021 12:52 PM 10/09/2021 5:00 PM * Full Code Date Activated Date Inactivated Comments 09/08/2021 1:07 AM 09/14/2021 5:41 PM Care Teams Secret Code Expert Relationship Specialty Start Date End Date Lona Diamond TELEVISION RECEIVER ANALYZER [address] [place] [address] PCP - General Internal Medicine 08/15/22 Karlie Reyes PA Screw Supervisor 10/31/21 Enrique Hurtado DO [address] [facility] [address] [place] [address] Referring Physician Surgery 08/30/21 Kory Lucio MD [address] [facility] [address] [place] [address] Surgeon Colon and Rectal Surgery 10/20/21
--- NOTE | 2025-03-30 01:33 | ECG_ITS ---
Test Date: 2025-03-30 01:54:27 Measurements Intervals [place] Rate: 94 P: 45 TX: 141 QRS: -9 QRSD: 93 T: 0 QT: 356 QTc: 447 Interpretive Statements SINUS RHYTHM MODERATE VOLTAGE CRITERIA FOR LVH, CONSIDER NORMAL VARIANT [MEETS CRITERIA IN ONE OF: R(aVL), S(V1), R(V5), R(V5/V6)+S(V1)] NONSPECIFIC T-WAVE ABNORMALITY No previous ECG available for comparison Electronically Signed On 03-30-2025 14:21:20 CDT by Tomás Mcmahan M.D.
--- OUTSIDE RECORDS SUMMARY | 2025-03-30 02:05 | XMS_ITS | Clinical Summary ---
Author Organization [facility] Address [address] [place] [address] Care Team Providers Care Section Crews Activities Clerk Name Role Phone Karlie Reyes Unavailable [phone] Enrique Hurtado DO Unavailable [phone] Kory Lucio MD Unavailable [phone] Lona Diamond NP Primary Care Provider [phone] Allergies No known active allergies Medications metoprolol [...] and needs a Coloplast Brava support belt 38863 1 each 6 3 Active Active Problems [...] 10:32 AM CDT): Encouraged f/u appt with address change clerk regarding settings of machine due to recent [...] week 10/03/2021 How often do you attend [facility] or scientology services? 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 Gender Identity Not on file Sexual Orientation Not on file Obstetrics History Last Filed Vital Signs Vital Sign Reading Time Taken Comments Blood Pressure 168/115 10/25/2022 9:58 AM CDT Pulse 73 10/25/2022 9:58 AM CDT Temperature 37.3 C (99.1 F) 09/11/2022 8:12 AM ACID PURIFICATION EQUIPMENT OPERATOR Respiratory Rate 18 01/19/2022 1:08 PM [...] Screening Completed 08/28/1996 , 04/03/1996, 02/26/1996 Insurance [facility] MEDICAID [facility] ANTH ACCESS [facility] Advance Directives For more information, please contact: [phone] * Full Code (Latest Code Status on File) Date Activated Date Inactivated Comments 11/04/2021 3:35 PM 11/11/2021 8:56 PM * Full Code Date Activated Date Inactivated Comments 09/30/2021 12:52 PM 10/09/2021 5:00 PM * Full Code Date Activated Date Inactivated Comments 09/08/2021 1:07 AM 09/14/2021 5:41 PM Care Teams Section Crews Activities Clerk Relationship Specialty Start Date End Date Lona Diamond ACTIVITIES MANAGER [address] [place] [address] PCP - General Internal Medicine 08/15/22 Karlie Reyes PA Security Analyst 10/31/21 Enrique Hurtado DO [address] [facility] [address] [place] [address] Referring Physician Surgery 08/30/21 Kory Lucio MD [address] [facility] [address] [place] [address] Surgeon Colon and Rectal Surgery 10/20/21
--- OUTSIDE RECORDS SUMMARY | 2025-03-30 02:05 | XMS_ITS | Clinical Summary ---
Author Organization [facility] Address [address] [place] [address] Care Team Providers Care Torch Cutter Name Role Phone Unavailable Primary Care Provider [...]
[2025-03-30] MEDS: PHENobarbitaL sodium (*CRX) 130 MG/ML VIAL 260 MG IV PUSH (02:07)
[2025-03-30] MEDS: LACTATED RINGERS 1,000 ML 999 ML IV CONT (02:07)
[2025-03-30 02:10] LABS: Hematocrit 38.2 % (37.0-47.0); Hemoglobin 13.0 g/dL (12.0-15.0); Immature Granulocyte Percent A 0.3 % (0-0.5); Lymphocytes Absolute Auto 1.69 K/mm3 (0.9-3.2); Mean Corpuscular HGB Conc 34.0 g/dl (32-36); Mean Corpuscular Hemoglobin 29.4 pg (26-34); Mean Corpuscular Volume 86.4 fl (80-100); Nucleated Red Blood Cells Absolute Auto 0.000 K/mm3 (0.0-0.012); Nucleated Red Blood Cells Perc 0.0 % (0.0-0.2); Platelet Count Result 181 k/mm3 (150-375); Red Blood Count 4.42 M/mm3 (4.2-5.4); White Blood Count 9.3 K/mm3 (4.5-10.0)
[2025-03-30] MEDS: SODIUM CHLORIDE 0.9% IV 100 ML 200 ML (02:17)
[2025-03-30 02:22] LABS: Alanine Aminotransferase 37 U/L (6-35); Albumin Level 4.5 g/dL (3.5-5.1); Alkaline Phosphatase 78 U/L (38-126); Anion Gap 14 mmol/L (4-12); Aspartate Amino Transferase 71 U/L (14-36); Bilirubin,Total 0.7 mg/dL (0.2-1.3); Blood Urea Nitrogen 3 mg/dL (7-17); Calcium 9.2 mg/dL (8.4-10.2); Carbon Dioxide 20 mmol/L (22-30); Chloride 100 mmol/L (98-107); Estimated CRCL calculation 180 ml/min; Estimated Glomerular Filt Rate > 60; Glucose 160 mg/dL (65-110); Potassium 3.6 mmol/L (3.4-5.0); Sodium 134 mmol/L (137-145); Total Protein 8.4 g/dL (6.3-8.2)
--- NOTE | 2025-03-30 03:29 | ED.ANXIETY ---
HPI - Anxiety General Chief Complaint: Shortness of Breath/Dyspnea Stated Complaint: breathing difficulty / confusion / weakness / dizz Time Seen by Provider: 03/30/25 01:32 History of Present Illness HPI narrative: Patient with history of alcohol use disorder who has been trying to quit drinking presents here with generalized weakness, shaking, severe anxiety, some shortness of breath. Tried spacing pint of alcohol out today. The shortness of breath is resolving now that she is here. Related Data Home Medications ?Medication ?Instructions ?Recorded ?Confirmed ?Last Taken ?Type ferrous sulfate 324 mg (65 mg 324 mg PO DAILY 11/14/21 03/12/25 Unknown History iron) tablet,delayed release Allergies Allergy/AdvReac Type Severity Reaction Status Date / Time No Known Allergies Allergy Verified 03/30/25 01:26 Review of Systems Review of Systems: All systems reviewed & are unremarkable except as noted in HPI and below PMFSH Past Medical History Medical History Adult BMI 60.0-69.9 kg/sq m Obstructive sleep apnea Hypertension Fatty liver Anxiety and depression Surgical History Surgical History History of partial colectomy Colostomy in place H/O bladder repair surgery History of colon resection Family History Family History Mother Alcoholism Depression Diabetes mellitus Father Alcoholism Depression Sibling Alcoholism Asthma Depression Hypertension Grandparent Alcoholism Cancer Depression Thyroid disorder Grandparent Alcoholism Depression Mother Peptic ulcer disease Social History Social History (Updated 03/12/25 @ 07:39 by Michelle Underwood MA) Smoking packs per day: 0.25 Smoking cigarettes per day: 5.0 Years smoked: 20 Smoking pack-years: 5.00 Smoking status: Current every day smoker Tobacco type: cigarettes and e-cigarettes/vaping Additional smoking assessment comments: patient states she is down to about 2 cigarettes a day now for a year Alcohol intake: former Alcohol use details: has been 6 weeks with no alcohol Substance use: never Do You Feel Safe in your Home?: Yes Lack of Transportation: No Lack of Food: Often True Current Housing: I Have Housing Concerned About Future Housing: YES Difficulty Paying Gas/Electric Bills: YES Difficulty Paying for Meds: YES Currently Unemployed: No Education: High School Diploma/GED Difficulty w/ Childcare or Family Care: No Spiritual care concerns: No Exam Narrative: EXAMINATION OF ORGAN SYSTEMS/BODY AREAS: Constitutional: Vital signs per nursing GENERAL: Appears incredibly anxious, shaking HEAD: Normal with no signs of head trauma. EYES: EOMI, conjunctiva normal ENT: Hearing grossly intact LUNGS: Nonlabored breathing. Clear to auscultation bilaterally HEART: [Regular rate and rhythm] ABD: [Soft], [nontender to palpation] EXT: Normal range of motion SKIN: [No rashes or lesions.] NEURO: [Alert and oriented x 3. No gross focal sensory or strength deficits.] Bilateral tremors PSYCH: Very anxious affect Course Vital Signs Vital signs: Vital Signs Temperature 99 F 03/30/25 01:34 Pulse Rate 97 03/30/25 01:34 Respiratory Rate 16 03/30/25 01:34 Blood Pressure 169/113 H 03/30/25 01:34 Pulse Oximetry 98 03/30/25 01:34 Oxygen Delivery Room Air 03/30/25 01:34 Temperature 99 F 03/30/25 01:34 Pulse Rate 95 03/30/25 01:43 Respiratory Rate 16 03/30/25 01:42 Blood Pressure 156/101 H 03/30/25 01:42 Pulse Oximetry 98 03/30/25 01:44 Oxygen Delivery Room Air 03/30/25 01:44 MDM - Anxiety MDM Narrative Medical decision making narrative: Patient with history of alcohol use disorder who has been trying to quit drinking presents here with generalized weakness, shaking, severe anxiety, some shortness of breath. Tried spacing pint of alcohol out today. The shortness of breath is resolving now that she is here. On exam is she is extremely anxious, I suspect she is in alcohol withdrawal or having a panic attack. EKG shows normal sinus rhythm rate 94, normal AK, QRS, QTC, axis, no obvious ST elevations or depressions or signs of acute ischemia or arrhythmia on my independent interpretation I did order a dose of phenobarbital and some IV fluids, and on my re-evaluation, patient feels much better, she feels much calmer, her shaking has stopped, her symptoms essentially resolved. With shared decision making, she much rather be admitted for the night because she is worried that her symptoms may return when she goes home. She would also like to have some help quitting drinking. D/w hospitalist for admission. Lab Data 03/30/25 02:01 03/30/25 02:01 Labs: Lab Results 03/30/25 Range/Units 02:01 WBC 9.3 (4.5-10.0) K/mm3 RBC 4.42 (4.2-5.4) M/mm3 Hgb 13.0 (12.0-15.0) g/dL Hct 38.2 (37.0-47.0) % MCV 86.4 (80-100) fl MCH 29.4 (26-34) pg MCHC 34.0 (32-36) g/dl RDW 15.6 H (11.5-14.5) % Plt Count 181 (150-375) k/mm3 MPV 11.3 H (7.4-10.4) fl Immature Gran % (Auto) 0.3 (0-0.5) % Neut % (Auto) 74.5 H (45.5-73.1) % Lymph % (Auto) 18.3 (18.3-44.2) % Grimes % (Auto) 5.1 (2.6-8.5) % Eos % (Auto) 1.3 (0-4.4) % Baso % (Auto) 0.5 (0.2-1.2) % Lymph # (Auto) 1.69 (0.9-3.2) K/mm3 Grimes # (Auto) 0.5 (0.1-0.6) K/mm3 Eos # (Auto) 0.1 (0-0.3) K/mm3 Baso # (Auto) 0.1 (0.0-0.1) K/mm3 Abs Immat Gran (auto) 0.03 (0.00-0.031) K/mm3 Absolute Neuts (auto) 6.9 H (1.3-6.7) K/mm3 Absolute Nucleated RBC 0.000 (0.0-0.012) K/mm3 Nucleated RBC % 0.0 (0.0-0.2) % Sodium 134 L (137-145) mmol/L Potassium 3.6 (3.4-5.0) mmol/L Chloride 100 (98-107) mmol/L Carbon Dioxide 20 L (22-30) mmol/L Anion Gap 14 H (4-12) mmol/L BUN 3 L (7-17) mg/dL Creatinine 0.54 L (0.7-1.0) mg/dL Estim Creat Clear Calc 180 ml/min Estimated GFR > 60 (59 - ) Glucose 160 H (65-110) mg/dL Calcium 9.2 (8.4-10.2) mg/dL Total Bilirubin 0.7 (0.2-1.3) mg/dL AST 71 H (14-36) U/L ALT 37 H (6-35) U/L Alkaline Phosphatase 78 (38-126) U/L Total Protein 8.4 H (6.3-8.2) g/dL Albumin 4.5 (3.5-5.1) g/dL Ethyl Alcohol 15 (<10) mg/dL Discharge Plan Discharge Clinical Impression: Alcohol withdrawal Patient Disposition: Still a Patient Condition: Improved Patient Language: Amharic Prescriptions: No Action tirzepatide 5 mg/0.5 mL pen injector 5 mg subcut WEEKLY Qty: 2 3RF Rx Instructions: for 4 weeks lisinopril 10 mg tablet 15 mg PO DAILY Qty: 135 1RF metformin [Glucophage XR] 500 mg tablet extended release 24 hr 500 mg PO BID Qty: 180 1RF ferrous sulfate 324 mg (65 mg iron) Tablet,Delayed Release (Dr/Ec) 324 mg PO DAILY (DME) blood-glucose meter [Blood Glucose Monitoring] Kit See Rx Instructions .Route Qty: 1 0RF Rx Instructions: Pt. to check blood sugar daily and when feeling symptoms of high or low blood sugar (DME) Blood Glucose Test Strip See Rx Instructions .ROUTE .MEDSUPPLY Qty: 100 3RF Rx Instructions: Pt. to check blood sugar once daily and when feeling symptoms of high or low blood sugar. Max testin times daily (DME) lancets 28 gauge misc See Rx Instructions .Route Qty: 100 3RF Rx Instructions: Use to check BS once daily and when BS is low. Max 3 times daily to check. atorvastatin [Lipitor] 10 mg tablet 10 mg PO DAILY Qty: 30 0RF cholecalciferol (vitamin D3) 1,250 mcg (50,000 unit) capsule 1,250 mcg PO WEEKLY Qty: 12 0RF disulfiram 250 mg tablet See Rx Instructions PO DAILY Qty: 30 0RF Rx Instructions: Take 1 tablet daily for 2 weeks and then a half tablet daily. Do not start medication until you have been alcohol free for at least 12 hours. Follow-up/Referrals: Trent Shields APRN [Primary Care Provider, [facility]]
--- NOTE | 2025-03-30 03:36 | P.HP_ITS ---
H&P: HPI History of Present Illness Date/Time: 03/30/25 03:36 Chief Complaint: Anxiety, tremors, feeling hot, generally unwell Narrative: 35-year-old female with history of active will use disorder, nicotine depen dence, obesity with BMI 50, hypertension, [id number] diabetes mellitus, dyslipidemia, history of diverticulitis status post colectomy with colostomy placement, MARI not currently using CPAP. The patient lives alone, she presents to [facility] ER on 03/30/2025 accompanied by a friend. She reports she has been feeling anxiety and tremors. She has been trying to curb though symptoms by drinking a lesser amount of alcohol. Over the past 24 hours she has drank about a pint of vodka whereas usually she drinks a 5th to TWO 5ths of vodka per day. She does want to quit, she appears upset. However, she feels significantly better after receiving phenobarbital 260 mg IV x1 in the ER and 1 L lactated Ringer's bolus. Anion gap 14, bicarb 20, serum creatinine 0.54. Vitals: Hemodynamically stable. Serum alcohol level 15. She reports marijuana use infrequently, and she is a smoker. Review of Systems Review of Systems: All systems reviewed & are unremarkable except as noted in HPI and below (Subjective) [facility] Past Medical History Medical History Adult BMI 60.0-69.9 kg/sq m Obstructive sleep apnea Hypertension Fatty liver Anxiety and depression Surgical History Surgical History History of partial colectomy Colostomy in place H/O bladder repair surgery History of colon resection Family History Family History Mother Alcoholism Depression Diabetes mellitus Father Alcoholism Depression Sibling Alcoholism Asthma Depression Hypertension Grandparent Alcoholism Cancer Depression Thyroid disorder Grandparent Alcoholism Depression Mother Peptic ulcer disease Social History Social History (Updated 03/12/25 @ 07:39 by Michelle Underwood MA) Smoking packs per day: 0.25 Smoking cigarettes per day: 5.0 Years smoked: 20 Smoking pack-years: 5.00 Smoking status: Current every day smoker Tobacco type: cigarettes and e-cigarettes/vaping Additional smoking assessment comments: patient states she is down to about 2 cigarettes a day now for a year Alcohol intake: former Alcohol use details: has been 6 weeks with no alcohol Substance use: never Do You Feel Safe in your Home?: Yes Lack of Transportation: No Lack of Food: Often True Current Housing: I Have Housing Concerned About Future Housing: YES Difficulty Paying Gas/Electric Bills: YES Difficulty Paying for Meds: YES Currently Unemployed: No Education: High School Diploma/GED Difficulty w/ Childcare or Family Care: No Spiritual care concerns: No Meds Home Medications and Allergies Home Medications ?Medication ?Instructions ?Recorded ?Confirmed ?Type ferrous sulfate 324 mg (65 mg 324 mg PO DAILY 11/14/21 03/12/25 History iron) tablet,delayed release blood-glucose meter (Blood Glucose #1 ea 12/09/24 Rx Monitoring kit) blood sugar diagnostic (Blood #100 ea 12/11/24 Rx Glucose Test strips) lancets 28 gauge #100 ea 12/11/24 Rx atorvastatin 10 mg tablet (Lipitor) 10 mg PO DAILY #30 tabs 02/13/25 03/12/25 Rx lisinopril 10 mg tablet 15 mg (1.5 x 10 mg) PO DAILY #135 03/12/25 03/12/25 Rx tabs metformin 500 mg tablet,extended 500 mg PO BID #180 ta bs 03/12/25 03/12/25 Rx release 24 hr (Glucophage XR) tirzepatide 5 mg/0.5 mL 5 mg (0.5 mL) subcut WEEKLY #2 mL 03/12/25 03/12/25 Rx subcutaneous pen injector cholecalciferol (vitamin D3) 1,250 1,250 mcg PO WEEKLY #12 caps 03/13/25 Rx mcg (50,000 unit) capsule disulfiram 250 mg tablet See Rx Instructions PO DAILY #30 03/13/25 Rx tabs Allergies Allergy/AdvReac Type Severity Reaction Status Date / Time No Known Allergies Allergy Verified 03/30/25 01:26 Vital Signs Vital Signs - 24 hr 03/30/25 01:34 03/30/25 01:42 03/30/25 01:43 Temperature 99 F Pulse Rate 97 101 H 95 Respiratory Rate 16 16 Blood Pressure 169/113 H 156/101 H Pulse Oximetry 98 98 Oxygen Delivery Room Air 03/30/25 01:44 Temperature Pulse Rate Respiratory Rate Blood Pressure Pulse Oximetry 98 Oxygen Delivery Room Air Exam Const: General: comfortable Other: A&O x3, slightly anxious Eyes: Pupils: Equal, round and reactive pupils present Neck: Neck: supple Resp: Effort & Inspection: normal respiratory effort Auscultation: clear to auscultation bilaterally Cardio: Rate: tachycardic Rhythm: regular rhythm Heart sounds: no murmurs GI: Inspection: non-distended GI Palp: Yes Soft to palpation and No Tenderness to palpation present (GI) Other: Ventral hernia surrounding the ostomy, brown stool in the bag. Neuro: Motor exam (neuro): 5/5 motor strength present throughout Other: Mild tremor Extrem: General: no edema Psych: Mental Status: mental status grossly normal H&P: Results Labs Labs: Short CBC 03/30/25 Range/Units 02:01 WBC 9.3 (4.5-10.0) K/mm3 Hgb 13.0 (12.0-15.0) g/dL Hct 38.2 (37.0-47.0) % Plt Count 181 (150-375) k/mm3 BMP 03/30/25 02:01 Sodium 134 L Potassium 3.6 Chloride 100 Carbon Dioxide 20 L BUN 3 L Creatinine 0.54 L Glucose 160 H Calcium 9.2 Liver Function 03/30/25 Range/Units 02:01 Total Bilirubin 0.7 (0.2-1.3) mg/dL AST 71 H (14-36) U/L ALT 37 H (6-35) U/L Alkaline Phosphatase 78 (38-126) U/L Albumin 4.5 (3.5-5.1) g/dL Assessment and Plan Assessment and plan (1) Alcoholism: Code(s): F10.20 - Alcohol dependence, uncomplicated Status: Acute (2) Type 2 diabetes mellitus: Qualifiers: Diabetes mellitus event coordinator marketing and sales insulin use: without event coordinator marketing and sales use Diabetes mellitus complication status: without complication Qualified Code(s): E11.9 - Type 2 diabetes mellitus without complications Code(s): E11.9 - Type 2 diabetes mellitus without complications Status: Acute (3) Hypertension: Qualifiers: Hypertension type: primary hypertension Qualified Code(s): I10 - Essential (primary) hypertension Code(s): I10 - Essential (primary) hypertension Status: Acute (4) Tobacco abuse: Code(s): Z72.0 - Tobacco use Status: Acute (5) Alcohol withdrawal: Code(s): F10.939 - Alcohol use, unspecified with withdrawal, unspecified Status: Acute Plan 35-year-old female with history of active will use disorder, nicotine dependence, obesity with BMI 50, hypertension, [id number] diabetes mellitus, dyslipidemia, history of diverticulitis status post colectomy with colostomy placement, MARI not currently using CPAP. The patient lives alone, she presents to [facility] ER on 03/30/2025 accompanied by a friend. She reports she has been feeling anxiety and tremors. She has been trying to curb though symptoms by drinking a lesser amount of alcohol. Over the past 24 hours she has drank about a pint of vodka whereas usually she drinks a 5th to TWO 5ths of vodka per day. She does want to quit, she appears upset. However, she feels significantly better after receiving phenobarbital 260 mg IV x1 in the ER and 1 L lactated Ringer's bolus. Anion gap 14, bicarb 20, serum creatinine 0.54. Vitals: Hemodynamically stable. Serum alcohol level 15. She reports marijuana use infrequently, and she is a smoker. ----- Patient will be admitted to intermediate unit and monitored for worsening withdrawal. Currently she is well treated after the phenobarbital dose in the ER. Start Librium 50 mg q.6 hours. CIWA protocol. Thiamine, folate, MVA, D5 normal saline. Slight anion gap metabolic acidosis likely due to ketosis. Patient reports she has not eaten much in the past few days. Check drug urine screen. Accu-Cheks q.6 hours with hypoglycemia protocol. Fall precautions, ambulate with assistance, PT/OT. Patient does see her PCP who manages her multiple comorbidities. I have counseled her extensively, she seems to receive this well. She is ready to quit. Care coordination consultation for abuse. I advised the patient to follow through with detox/rehabilitation, close follow with PCP, follow-up with psychotherapy to address any underlying past her current trauma. Patient seemed to receive this well. Nicotine patch. Medications will be restarted as indicated and appropriate. ----- Patient lives alone. Full code. Diabetic diet. D5 normal saline. Fall precautions/ambulate with assistance/PT/OT. Seizure precautions. Care coordination consultation. Lovenox 40 mg subQ q.day. Hospitalist [facility] Advance Care Plan I have confirmed that the patient's Advanced Care Plan is present, code status is documented, or surrogate decision maker is listed in patient medical record.: Yes Medication Reconciliation I have utilized all available resources to obtain, update and review the patients current medications (includes all prescriptions, OTC, herbals, cannabis, and nutritional supplements).: Yes
[2025-03-30] MEDS: THIAMINE HCL 200 MG/2 ML VIAL 100 MG IV PUSH (03:58)
[2025-03-30] MEDS: DEXTROSE 5%/0.9% SOD CHL 1,000 ML 125 ML IV CONT (03:58)
[2025-03-30 04:02] LABS: Magnesium 1.5 mg/dL (1.6-2.3)
[2025-03-30] MEDS: FOLIC ACID 1 MG/0.2 ML INJ IV PUSH (04:03)
--- NOTE | 2025-03-30 04:15 | PC.NURSE ---
Pt states she will provide a urine sample in a few minutes after drinking some water.
[2025-03-30] MEDS: MAGNESIUM SULF 2 GM/WATER 50ML 2 GM/50 ML BAG IVPB (04:38)
[2025-03-30 04:45] LABS: BEDSIDEPREGUCG Negative (Negative)
--- NOTE | 2025-03-30 04:46 | PC.NURSE ---
Pt reports a hx of self harm/cutting. Pt has multiple old abrasions to L lower arm. Pt denies any SI or HI.
[2025-03-30 05:35] LABS: Cannabinoid Screen Urine Positive (Negative)
--- NOTE | 2025-03-30 06:03 | ADMGEN ---
This patient, Yahaira Thomas, was admitted to IMU Room 204-01. Patient/family oriented to hospital policies and general routines including ID bracelet, bed and alarms, visiting hours, pain management, procedures, bathroom and other care routines, personal items, smoking policy, room service/diet, and visiting hours. Information on how to activate the Rapid Response Team has been discussed. Patient/Family are encouraged to report perceived risks to care and to ask questions if they do not understand what they are told or what they should do.
[2025-03-30] MEDS: chlordiazePOXIDE (*CRX) 25 MG CAPSULE 50 MG PO ×4 (06:06→23:31)
[2025-03-30] MEDS: FOLIC ACID 1 MG TABLET PO (09:16)
[2025-03-30] MEDS: ATORVASTATIN 10 MG TABLET PO (09:17)
[2025-03-30] MEDS: THIAMINE HCL 100 MG TABLET PO (09:17)
[2025-03-30] MEDS: MULTIVITAMINS THERAPEUTIC TAB (*BKC) 1 TABLET PO (09:18)
[2025-03-30] MEDS: FERROUS SULFATE 325 MG TABLET BY MOUTH (09:18)
[2025-03-30] MEDS: ENOXAPARIN 40 MG/0.4 ML SYRINGE SUB-Q (09:19)
--- NOTE | 2025-03-30 13:55 | PM.IMPN ---
Progress Note: A&P Assessment and Plan (1) Depression: Qualifiers: Depression Type: major depressive disorder Major depression recurrence: recurrent Active/Remission status: currently active Major depression episode severity: moderate Qualified Code(s): F33.1 - Major depressive disorder, recurrent, moderate Code(s): F32.A - Depression, unspecified Status: Acute (2) Alcoholism: Code(s): F10.20 - Alcohol dependence, uncomplicated Status: Acute (3) Alcohol withdrawal: Code(s): F10.939 - Alcohol use, unspecified with withdrawal, unspecified Status: Acute (4) Hypertension: Qualifiers: Hypertension type: primary hypertension Qualified Code(s): I10 - Essential (primary) hypertension Code(s): I10 - Essential (primary) hypertension Status: Acute Plan 35-year-old female with history of alcohol use disorder, nicotine dependence, obesity with BMI 50, hypertension, [id number] diabetes mellitus, dyslipidemia, history of diverticulitis status post colectomy with colostomy placement, MARI not currently using CPAP presented with anxiety, tremors 1. Alcohol withdrawal: Continue with tele monitoring Continue with CIWA protocol Librium Q 6 hours Continue with thiamine, folic acid Discontinue IV fluids Urine drug screen positive Patient has history of self-harm in the past Case management consult, will benefit from psych eval 2. Hypertension: Continue with lisinopril 3. Diabetes mellitus: Blood glucose checked t.i.d. a.c. HS Continue with sliding scale insulin Adjust dose as needed 4. Code status: Full 5. DVT prophylaxis: Lovenox 6. Disposition: Pending improvement Time Spent With Patient Time: 38 minutes Subjective Date/time seen: 03/30/25 13:55 Interval history: Anxiety, tremors, not feeling well Review of Systems Review of Systems: All systems reviewed & are unremarkable except as noted in HPI and below Exam Const: General: comfortable Other: A&O x3, slightly anxious Eyes: Pupils: Equal, round and reactive pupils present Neck: Neck: supple Resp: Effort & Inspection: normal respiratory effort Auscultation: clear to auscultation bilaterally Cardio: Rate: tachycardic Rhythm: regular rhythm Heart sounds: no murmurs GI: Inspection: non-distended GI Palp: Yes Soft to palpation and No Tenderness to palpation present (GI) Other: Ventral hernia surrounding the ostomy, brown stool in the bag. Neuro: Motor exam (neuro): 5/5 motor strength present throughout Other: Mild tremor Extrem: General: no edema Psych: Mental Status: mental status grossly normal Objective Data Vital Signs Vital Signs: Vital Signs - 24 hr 03/30/25 01:34 03/30/25 01:42 03/30/25 01:43 Temperature 99 F Pulse Rate 97 101 H 95 Pulse Rate [Monitor] Respiratory Rate 16 16 Blood Pressure 169/113 H 156/101 H Pulse Oximetry 98 98 Oxygen Delivery Room Air 03/30/25 01:43 03/30/25 01:44 03/30/25 01:44 Temperature Pulse Rate 91 99 Pulse Rate [Monitor] Respiratory Rate 14 15 Blood Pressure 156/101 H Pulse Oximetry 98 98 99 Oxygen Delivery Room Air 03/30/25 02:30 03/30/25 02:31 03/30/25 03:01 Temperature Pulse Rate 95 115 H 90 Pulse Rate [Monitor] Respiratory Rate 17 24 H 21 H Blood Pressure 157/104 H 149/81 H Pulse Oximetry 97 97 97 Oxygen Delivery 03/30/25 03:31 03/30/25 05:50 03/30/25 06:00 Temperature Pulse Rate 102 H 102 H Pulse Rate [Monitor] 101 H Respiratory Rate 23 H 23 H Blood Pressure 143/73 H 143/73 H Pulse Oximetry 98 98 Oxygen Delivery 03/30/25 06:11 03/30/25 06:48 03/30/25 08:00 Temperature 99.0 F 98.0 F Pulse Rate 77 93 105 H Pulse Rate [Monitor] Respiratory Rate 21 H 20 Blood Pressure 148/90 H 146/83 H Pulse Oximetry 99 99 Oxygen Delivery 03/30/25 08:00 03/30/25 08:00 03/30/25 08:56 Temperature Pulse Rate 73 Pulse Rate [Monitor] 92 Respiratory Rate Blood Pressure Pulse Oximetry 94 Oxygen Delivery Room Air 03/30/25 10:00 03/30/25 11:53 03/30/25 12:00 Temperature 98.0 F Pulse Rate 79 73 85 Pulse Rate [Monitor] Respiratory Rate 14 Blood Pressure 141/85 H Pulse Oximetry 98 Oxygen Delivery Intake/Output Intake/Output: Intake & Output 03/27/25 03/28/25 03/29/25 03/30/25 23:59 23:59 23:59 23:59 Intake Total 1150 Output Total 400 Balance 750 Meds/Results Medications: Active Medications Generic Name Dose Route Start Last Admin Trade Name Freq PRN Reason Stop Dose Admin Atorvastatin Calcium 10 mg 03/30/25 09:00 03/30/25 09:17 Atorvastatin 10 Mg Tablet PO 10 mg DAILY KYLE Administration Chlordiazepoxide HCl 50 mg 03/30/25 06:00 03/30/25 13:25 Chlordiazepoxide (*Crx) 25 Mg Capsule PO 50 mg Q6HR KYLE Administration Dextrose 12.5 gm 03/30/25 08:19 Dextrose 50% 25 Gm/50 Ml Syringe IV PUSH PRN PRN Hypoglycemia Protocol Diazepam 5 - 10 mg 03/30/25 03:32 Diazepam Inj (*Crx) 10 Mg/2 Ml Syringe IV PUSH Q2H PRN CIWA > 15 Enoxaparin Sodium 40 mg 03/30/25 09:00 03/30/25 09:19 Enoxaparin 40 Mg/0.4 Ml Syringe SUB-Q 40 mg DAILY KYLE Administration Ergocalciferol 1,250 mcg 04/01/25 09:00 Ergocalciferol (Vitamin D2) 1,250 Mcg (50,000 Units) Capsule PO WEEKLY KYLE Ferrous Sulfate 325 mg 03/30/25 09:00 03/30/25 09:18 Ferrous Sulfate 325 Mg Tablet BY MOUTH 325 mg DAILY KYLE Administration Folic Acid 1 mg 03/30/25 09:00 03/30/25 09:16 Folic Acid 1 Mg Tablet PO 1 mg DAILY KYLE Administration Glucagon 1 mg 03/30/25 08:19 Glucagon For Inj 1 Mg Vial IM PRN PRN Hypoglycemia Protocol Glucose 15 gm 03/30/25 08:19 Glucose Oral Gel 15 Gm Of Glucse In 37.5 Gm Tube PO PRN PRN Hypoglycemia Protocol Dextrose 1,000 mls @ 100 mls/hr 03/30/25 08:19 Dextrose 5% 1,000 Ml IVPB PRN PRN Hypoglycemia Protocol Insulin Aspart 2 - 5 units 03/30/25 08:00 03/30/25 09:08 Insulin Aspart (*Bkc) 100 Units/Ml SUB-Q Not Given TIDWM [facility] Protocol Insulin Aspart 1 - 2 units 03/30/25 21:00 Insulin Aspart (*Bkc) 100 Units/Ml SUB-Q HS [facility] Protocol Lisinopril 15 mg 03/30/25 09:00 03/30/25 09:17 Lisinopril 5 Mg Tablet PO 15 mg DAILY KYLE Administration Multivitamins Therapeutic 1 tablet 03/30/25 09:00 03/30/25 09:18 Multivitamins Therapeutic Tab (*Bkc) PO 1 tablet QAM KYLE Administration Thiamine HCl 100 mg 03/30/25 09:00 03/30/25 09:17 Thiamine Hcl 100 Mg Tablet PO 100 mg QAM KYLE Administration Labs Labs: Laboratory Results - last 24 hr 03/30/25 03/30/25 03/30/25 02:01 03:57 04:35 WBC 9.3 RBC 4.42 Hgb 13.0 Hct 38.2 MCV 86.4 MCH 29.4 MCHC 34.0 RDW 15.6 H Plt Count 181 MPV 11.3 H Immature Gran % (Auto) 0.3 Neut % (Auto) 74.5 H Lymph % (Auto) 18.3 Harvey % (Auto) 5.1 Eos % (Auto) 1.3 Baso % (Auto) 0.5 Lymph # (Auto) 1.69 Harvey # (Auto) 0.5 Eos # (Auto) 0.1 Baso # (Auto) 0.1 Abs Immat Gran (auto) 0.03 Absolute Neuts (auto) 6.9 H Absolute Nucleated RBC 0.000 Nucleated RBC % 0.0 Sodium 134 L Potassium 3.6 Chloride 100 Carbon Dioxide 20 L Anion Gap 14 H BUN 3 L Creatinine 0.54 L Estim Creat Clear Calc 180 Estimated GFR > 60 Glucose 160 H POC Capillary Glucose 172 H Calcium 9.2 Magnesium 1.5 L Total Bilirubin 0.7 AST 71 H ALT 37 H Alkaline Phosphatase 78 Total Protein 8.4 H Albumin 4.5 POC Urine HCG, Qual Urine Opiates Screen Negative Urine Methadone Screen Negative Ur Barbiturates Screen Positive A Ur Phencyclidine Scrn Negative Ur Amphetamine Screen Negative U Benzodiazepines Scrn Negative Urine Cocaine Screen Negative U Cannabinoids Screen Positive A Ethyl Alcohol 15 03/30/25 03/30/25 03/30/25 04:44 06:09 11:45 WBC RBC Hgb Hct MCV MCH MCHC RDW Plt Count MPV Immature Gran % (Auto) Neut % (Auto) Lymph % (Auto) Harvey % (Auto) Eos % (Auto) Baso % (Auto) Lymph # (Auto) Harvey # (Auto) Eos # (Auto) Baso # (Auto) Abs Immat Gran (auto) Absolute Neuts (auto) Absolute Nucleated RBC Nucleated RBC % Sodium Potassium Chloride Carbon Dioxide Anion Gap BUN Creatinine Estim Creat Clear Calc Estimated GFR Glucose POC Capillary Glucose 143 H 115 H Calcium Magnesium Total Bilirubin AST ALT Alkaline Phosphatase Total Protein Albumin POC Urine HCG, Qual Negative Urine Opiates Screen Urine Methadone Screen Ur Barbiturates Screen Ur Phencyclidine Scrn Ur Amphetamine Screen U Benzodiazepines Scrn Urine Cocaine Screen U Cannabinoids Screen Ethyl Alcohol Quality VTE Prophylaxis VTE prophylaxis: pharmacologic ordered
[2025-03-31] VITALS (8 sets, daily range): BP systolic 117–126; BP diastolic 61–78; PULSE 65–101; RESP 14–16; TEMP 36.7–37.1; O2SAT 96–100
[2025-03-31 04:26] LABS: Hematocrit 36.3 % (37.0-47.0); Hemoglobin 11.5 g/dL (12.0-15.0); Immature Granulocyte Percent A 0.3 % (0-0.5); Immature Platelet Fraction Pct 8.3 % (0.9-11.2); Lymphocytes Absolute Auto 1.86 K/mm3 (0.9-3.2); Mean Corpuscular HGB Conc 31.7 g/dl (32-36); Mean Corpuscular Hemoglobin 29.3 pg (26-34); Mean Corpuscular Volume 92.6 fl (80-100); Nucleated Red Blood Cells Absolute Auto 0.000 K/mm3 (0.0-0.012); Nucleated Red Blood Cells Perc 0.0 % (0.0-0.2); Platelet Count Result 129 k/mm3 (150-375); Red Blood Count 3.92 M/mm3 (4.2-5.4); White Blood Count 6.6 K/mm3 (4.5-10.0)
[2025-03-31 04:55] LABS: Alanine Aminotransferase 25 U/L (6-35); Albumin Level 3.5 g/dL (3.5-5.1); Alkaline Phosphatase 65 U/L (38-126); Anion Gap 7 mmol/L (4-12); Aspartate Amino Transferase 41 U/L (14-36); Bilirubin,Total 0.7 mg/dL (0.2-1.3); Blood Urea Nitrogen 6 mg/dL (7-17); Calcium 8.8 mg/dL (8.4-10.2); Carbon Dioxide 22 mmol/L (22-30); Chloride 105 mmol/L (98-107); Estimated CRCL calculation 203 ml/min; Estimated Glomerular Filt Rate > 60; Glucose 119 mg/dL (65-110); Magnesium 2.1 mg/dL (1.6-2.3); Potassium 3.9 mmol/L (3.4-5.0); Sodium 134 mmol/L (137-145); Total Protein 6.6 g/dL (6.3-8.2)
[2025-03-31 05:02] LABS: Hemoglobin A1C 6.4 % (<5.7)
[2025-03-31] MEDS: chlordiazePOXIDE (*CRX) 25 MG CAPSULE 50 MG PO ×3 (05:51→20:38)
[2025-03-31] MEDS: ENOXAPARIN 40 MG/0.4 ML SYRINGE SUB-Q (08:30)
[2025-03-31] MEDS: FERROUS SULFATE 325 MG TABLET BY MOUTH (08:31)
[2025-03-31] MEDS: ATORVASTATIN 10 MG TABLET PO (08:31)
[2025-03-31] MEDS: THIAMINE HCL 100 MG TABLET PO (08:31)
[2025-03-31] MEDS: FOLIC ACID 1 MG TABLET PO (08:31)
[2025-03-31] MEDS: MULTIVITAMINS THERAPEUTIC TAB (*BKC) 1 TABLET PO (08:31)
--- NOTE | 2025-03-31 13:45 | P.PNIM_ITS ---
Progress Note: A&P Assessment and Plan (1) Depression: Qualifiers: Depression Type: major depressive disorder Major depression recurrence: recurrent Active/Remission status: currently active Major depression episode severity: moderate Qualified Code(s): F33.1 - Major depressive disorder, recurrent, moderate Code(s): F32.A - Depression, unspecified Status: Acute (2) Alcoholism: Code(s): F10.20 - Alcohol dependence, uncomplicated Status: Acute (3) Alcohol withdrawal: Code(s): F10.939 - Alcohol use, unspecified with withdrawal, unspecified Status: Acute (4) Hypertension: Qualifiers: Hypertension type: primary hypertension Qualified Code(s): I10 - Essential (primary) hypertension Code(s): I10 - Essential (primary) hypertension Status: Acute Plan 35-year-old female with history of alcohol use disorder, nicotine dependence, obesity with BMI 50, hypertension, [id number] diabetes mellitus, dyslipidemia, history of diverticulitis status post colectomy with colostomy placement, MARI not currently using CPAP presented with anxiety, tremors 1. Alcohol withdrawal: Continue with tele monitoring Continue with CIWA protocol Librium Q 6 hours prn Continue with thiamine, folic acid Discontinue IV fluids Urine drug screen positive Patient has history of self-harm in the past Discharge planning to get very happy 2. Hypertension: Continue with lisinopril 3. Diabetes mellitus: Blood glucose checked t.i.d. a.c. HS Continue with sliding scale insulin Adjust dose as needed 4. Code status: Full 5. DVT prophylaxis: Lovenox 6. Disposition: Discharge planning to [facility] for substance abuse rehabilitation Time Spent With Patient Time: 38 minutes Subjective Date/time seen: 03/31/25 13:45 Interval history: Feeling much better today CIWA scores as high as 3 Review of Systems Review of Systems: All systems reviewed & are unremarkable except as noted in HPI and below Exam Const: General: comfortable Other: A&O x3, slightly anxious Eyes: Pupils: Equal, round and reactive pupils present Neck: Neck: supple Resp: Effort & Inspection: normal respiratory effort Auscultation: clear to auscultation bilaterally Cardio: Rate: tachycardic Rhythm: regular rhythm Heart sounds: no murmurs GI: Inspection: non-distended GI Palp: Yes Soft to palpation and No Tenderness to palpation present (GI) Other: Ventral hernia surrounding the ostomy, brown stool in the bag. Neuro: Motor exam (neuro): 5/5 motor strength present throughout Other: Mild tremor Extrem: General: no edema Psych: Mental Status: mental status grossly normal Objective Data Vital Signs Vital Signs: Vital Signs - 24 hr 03/30/25 14:00 03/30/25 14:14 03/30/25 14:25 Temperature Pulse Rate 69 Pulse Rate [Monitor] Respiratory Rate Blood Pressure Pulse Oximetry Oxygen Delivery Room Air Room Air 03/30/25 16:00 03/30/25 16:00 03/30/25 18:00 Temperature 97.8 F Pulse Rate 71 77 63 Pulse Rate [Monitor] Respiratory Rate 16 Blood Pressure 134/72 Pulse Oximetry 99 Oxygen Delivery 03/30/25 20:00 03/30/25 20:00 03/30/25 20:00 Temperature 98.2 F Pulse Rate 80 77 Pulse Rate [Monitor] 70 Respiratory Rate 18 Blood Pressure 130/72 Pulse Oximetry 100 Oxygen Delivery 03/30/25 22:00 03/31/25 00:00 03/31/25 00:00 Temperature 98.0 F Pulse Rate 68 69 Pulse Rate [Monitor] 67 Respiratory Rate 16 Blood Pressure 119/74 Pulse Oximetry 99 Oxygen Delivery 03/31/25 00:00 03/31/25 00:00 03/31/25 02:14 Temperature Pulse Rate 67 70 Pulse Rate [Monitor] Respiratory Rate Blood Pressure Pulse Oximetry Oxygen Delivery Room Air 03/31/25 04:00 03/31/25 04:00 03/31/25 04:00 Temperature 98.5 F Pulse Rate 67 Pulse Rate [Monitor] 65 Respiratory Rate 14 Blood Pressure 119/61 Pulse Oximetry 96 Oxygen Delivery Room Air 03/31/25 04:00 03/31/25 06:05 03/31/25 08:00 Temperature 98.1 F Pulse Rate 85 68 76 Pulse Rate [Monitor] Respiratory Rate 16 Blood Pressure 117/78 Pulse Oximetry 100 Oxygen Delivery 03/31/25 08:00 03/31/25 08:00 Temperature Pulse Rate 101 H Pulse Rate [Monitor] 88 Respiratory Rate Blood Pressure Pulse Oximetry Oxygen Delivery Intake/Output Intake/Output: Intake & Output 03/28/25 03/29/25 03/30/25 03/31/25 23:59 23:59 23:59 23:59 Intake Total 1630 240 Output Total 400 Balance 1230 240 Meds/Results Medications: Active Medications Generic Name Dose Route Start Last Admin Trade Name Freq PRN Reason Stop Dose Admin Atorvastatin Calcium 10 mg 03/30/25 09:00 03/31/25 08:31 Atorvastatin 10 Mg Tablet PO 10 mg DAILY KYLE Administration Chlordiazepoxide HCl 50 mg 03/30/25 06:00 03/31/25 11:36 Chlordiazepoxide (*Crx) 25 Mg Capsule PO 50 mg Q6HR KYLE Administration Dextrose 12.5 gm 03/30/25 08:19 Dextrose 50% 25 Gm/50 Ml Syringe IV PUSH PRN PRN Hypoglycemia Protocol Diazepam 5 - 10 mg 03/30/25 03:32 Diazepam Inj (*Crx) 10 Mg/2 Ml Syringe IV PUSH Q2H PRN CIWA > 15 Enoxaparin Sodium 40 mg 03/30/25 09:00 03/31/25 08:30 Enoxaparin 40 Mg/0.4 Ml Syringe SUB-Q 40 mg DAILY KYLE Administration Ergocalciferol 1,250 mcg 04/01/25 09:00 Ergocalciferol (Vitamin D2) 1,250 Mcg (50,000 Units) Capsule PO WEEKLY KYLE Ferrous Sulfate 325 mg 03/30/25 09:00 03/31/25 08:31 Ferrous Sulfate 325 Mg Tablet BY MOUTH 325 mg DAILY KYLE Administration Folic Acid 1 mg 03/30/25 09:00 03/31/25 08:31 Folic Acid 1 Mg Tablet PO 1 mg DAILY KYLE Administration Glucagon 1 mg 03/30/25 08:19 Glucagon For Inj 1 Mg Vial IM PRN PRN Hypoglycemia Protocol Glucose 15 gm 03/30/25 08:19 Glucose Oral Gel 15 Gm Of Glucse In 37.5 Gm Tube PO PRN PRN Hypoglycemia Protocol Dextrose 1,000 mls @ 100 mls/hr 03/30/25 08:19 Dextrose 5% 1,000 Ml IVPB PRN PRN Hypoglycemia Protocol Insulin Aspart 2 - 5 units 03/30/25 08:00 03/30/25 18:44 Insulin Aspart (*Bkc) 100 Units/Ml SUB-Q Not Given TIDWM [facility] Protocol Insulin Aspart 1 - 2 units 03/30/25 21:00 03/30/25 21:38 Insulin Aspart (*Bkc) 100 Units/Ml SUB-Q Not Given HS [facility] Protocol Lisinopril 15 mg 03/30/25 09:00 03/31/25 08:31 Lisinopril 5 Mg Tablet PO 15 mg DAILY KYLE Administration Multivitamins Therapeutic 1 tablet 03/30/25 09:00 03/31/25 08:31 Multivitamins Therapeutic Tab (*Bkc) PO 1 tablet QAM KYLE Administration Thiamine HCl 100 mg 03/30/25 09:00 03/31/25 08:31 Thiamine Hcl 100 Mg Tablet PO 100 mg QAM KYLE Administration Labs Labs: Laboratory Results - last 24 hr 03/30/25 03/30/25 03/31/25 16:28 19:54 03:40 WBC 6.6 RBC 3.92 L Hgb 11.5 L Hct 36.3 L MCV 92.6 D MCH 29.3 MCHC 31.7 L RDW 15.9 H Plt Count 129 L MPV 11.6 H Immature Gran % (Auto) 0.3 Neut % (Auto) 59.3 Lymph % (Auto) 28.0 Cole % (Auto) 8.0 Eos % (Auto) 3.8 Baso % (Auto) 0.6 Lymph # (Auto) 1.86 Cole # (Auto) 0.5 Eos # (Auto) 0.3 Baso # (Auto) 0.0 Abs Immat Gran (auto) 0.02 Absolute Neuts (auto) 3.9 Absolute Nucleated RBC 0.000 Nucleated RBC % 0.0 % Immature Plt Fraction 8.3 Sodium 134 L Potassium 3.9 Chloride 105 Carbon Dioxide 22 Anion Gap 7 BUN 6 L Creatinine 0.48 L Estim Creat Clear Calc 203 Estimated GFR > 60 Glucose 119 H POC Capillary Glucose 132 H 121 H Hemoglobin A1c 6.4 H Calcium 8.8 Magnesium 2.1 Total Bilirubin 0.7 AST 41 H ALT 25 Alkaline Phosphatase 65 Total Protein 6.6 Albumin 3.5 03/31/25 03/31/25 07:32 11:44 WBC RBC Hgb Hct MCV MCH MCHC RDW Plt Count MPV Immature Gran % (Auto) Neut % (Auto) Lymph % (Auto) Cole % (Auto) Eos % (Auto) Baso % (Auto) Lymph # (Auto) Cole # (Auto) Eos # (Auto) Baso # (Auto) Abs Immat Gran (auto) Absolute Neuts (auto) Absolute Nucleated RBC Nucleated RBC % % Immature Plt Fraction Sodium Potassium Chloride Carbon Dioxide Anion Gap BUN Creatinine Estim Creat Clear Calc Estimated GFR Glucose POC Capillary Glucose 135 H 128 H Hemoglobin A1c Calcium Magnesium Total Bilirubin AST ALT Alkaline Phosphatase Total Protein Albumin Quality VTE Prophylaxis VTE prophylaxis: pharmacologic ordered
--- NOTE | 2025-03-31 14:31 | PC.NURSE ---
On 03/30/25, the VOCATIONAL ADVISER, [Ham Gonzalez ], provided care and completed [facility] documentation on this patient. I have reviewed the VOCATIONAL ADVISER's documentation and agree with the findings.
--- NOTE | 2025-03-31 17:38 | PC.NURSE ---
On 03/31/25, the NURSE SEXUAL ASSAULT, [Ham Gonzalez ], provided care and completed [facility] documentation on this patient. I have reviewed the NURSE SEXUAL ASSAULT's documentation and agree with the findings.
--- NOTE | 2025-03-31 23:29 | PC.NURSE ---
This patient, Yahaira Thomas, was transferred to [facility] on 03/31/25 at 2325. Personal belongings sent with patient. Report given to RAUL Vargas. Appropriate documentation sent with patient.
[2025-04-01] VITALS: BP 126/78; PULSE 85
[2025-04-01 04:00] VITALS: BP 126/78; PULSE 85
[2025-04-01 06:00] VITALS: BP 114/69; PULSE 81; RESP 20; TEMP 36.7; O2SAT 99
[2025-04-01] MEDS: MULTIVITAMINS THERAPEUTIC TAB (*BKC) 1 TABLET PO (08:39)
[2025-04-01] MEDS: ERGOCALCIFEROL (VITAMIN D2) 1,250 MCG (50,000 UNITS) CAPSULE 1250 MCG PO (08:39)
[2025-04-01] MEDS: ATORVASTATIN 10 MG TABLET PO (08:39)
[2025-04-01] MEDS: FOLIC ACID 1 MG TABLET PO (08:40)
[2025-04-01] MEDS: FERROUS SULFATE 325 MG TABLET BY MOUTH (08:40)
[2025-04-01] MEDS: THIAMINE HCL 100 MG TABLET PO (08:40)
[2025-04-01 08:45] VITALS: BP 114/69; PULSE 85
[2025-04-01] MEDS: chlordiazePOXIDE (*CRX) 25 MG CAPSULE 50 MG PO (10:12)
--- NOTE | 2025-04-01 10:53 | PM.DS ---
DS: Admitting Diagnosis Discharge Date 04/01 Admitting Diagnosis alcohol withdrawal DS: Discharge Diagnosis Discharge Diagnosis (1) Depression: Qualifiers: Depression Type: major depressive disorder Major depression recurrence: recurrent Active/Remission status: currently active Major depression episode severity: moderate Qualified Code(s): F33.1 - Major depressive disorder, recurrent, moderate Code(s): F32.A - Depression, unspecified Status: Acute (2) Alcoholism: Code(s): F10.20 - Alcohol dependence, uncomplicated Status: Acute (3) Alcohol withdrawal: Code(s): F10.939 - Alcohol use, unspecified with withdrawal, unspecified Status: Acute (4) Hypertension: Qualifiers: Hypertension type: primary hypertension Qualified Code(s): I10 - Essential (primary) hypertension Code(s): I10 - Essential (primary) hypertension Status: Acute DS: Summary Hospital Course Hospital Course: 35-year-old female with history of alcohol use disorder, nicotine dependence, obesity with BMI 50, hypertension, [id number] diabetes mellitus, dyslipidemia, history of diverticulitis status post colectomy with colostomy placement, MARI not currently using CPAP presented with anxiety, tremors # Alcohol withdrawal: Continue with tele monitoring Continue with CIWA protocol Librium Q 6 hours prn Continue with thiamine, folic acid Discontinue IV fluids Urine drug screen positive Patient has history of self-harm in the past 2. Hypertension: Continue with lisinopril- reviewed and stable- no changes 3. Diabetes mellitus: Blood glucose checked t.i.d. a.c. HS Continue with sliding scale insulin Disposition: Discharge planning to [facility] for substance abuse rehabilitation- accepted on 04/01- stable for discharge today. Status at Discharge Functional status at discharge: independent ambulation Time Spent with Patient Time attestation: Total time spent providing and/or coordinating discharge services: Exam Const: General: comfortable Other: A&O x3 Eyes: Pupils: Equal, round and reactive pupils present Neck: Neck: supple Resp: Effort & Inspection: normal respiratory effort Auscultation: clear to auscultation bilaterally Cardio: Rate: tachycardic Rhythm: regular rhythm Heart sounds: no murmurs GI: Inspection: non-distended Other: Ventral hernia surrounding the ostomy, brown stool in the bag. Neuro: Cranial nerves: Yes Equal, round and reactive pupils present Motor exam (neuro): 5/5 motor strength present throughout Other: Mild tremor Extrem: General: no edema Psych: Mental Status: mental status grossly normal DS: Data Data Completed and Pending Labs on day of discharge: Labs from last 24 hours 04/01/25 03/31/25 03/31/25 07:57 20:15 16:43 POC Capillary Glucose 138 H 128 H 101 03/31/25 11:44 POC Capillary Glucose 128 H Discharge Plan Discharge Attending physician on discharge: Ibrahima Shin Discharging Clinician: Nancie Lopez Patient Disposition: Other Activity: may shower Diet: heart healthy Patient Instructions: Antibiotic Form, How to Stop Smoking (ED), Abuse of Alcohol (DC), Alcohol Withdrawal (DC), Help Prevent Suicide (DC) Patient Language: Mongolian Stand Alone Forms: General Discharge Information Discharge Medications: New thiamine HCl (vitamin B1) [Vitamin B-1] 100 mg Tablet 100 mg PO QAM Qty: 30 0RF folic acid 1 mg Tablet 1 mg PO DAILY Qty: 30 0RF multivitamin with folic acid [Thera] 400 mcg Tablet 1 tablet PO QAM Qty: 30 0RF Continued tirzepatide 5 mg/0.5 mL pen injector 5 mg subcut WEEKLY Qty: 2 3RF Rx Instructions: for 4 weeks lisinopril 10 mg tablet 15 mg PO DAILY Qty: 135 1RF metformin [Glucophage XR] 500 mg tablet extended release 24 hr 500 mg PO BID Qty: 180 1RF ferrous sulfate 324 mg (65 mg iron) Tablet,Delayed Release (Dr/Ec) 324 mg PO DAILY (DME) blood-glucose meter [Blood Glucose Monitoring] Kit See Rx Instructions .Route Qty: 1 0RF Rx Instructions: Pt. to check blood sugar daily and when feeling symptoms of high or low blood sugar (DME) Blood Glucose Test Strip See Rx Instructions .ROUTE .MEDSUPPLY Qty: 100 3RF Rx Instructions: Pt. to check blood sugar once daily and when feeling symptoms of high or low blood sugar. Max testin times daily (DME) lancets 28 gauge misc See Rx Instructions .Route Qty: 100 3RF Rx Instructions: Use to check BS once daily and when BS is low. Max 3 times daily to check. atorvastatin [Lipitor] 10 mg tablet 10 mg PO DAILY Qty: 30 0RF cholecalciferol (vitamin D3) 1,250 mcg (50,000 unit) capsule 1,250 mcg PO WEEKLY Qty: 12 0RF Held disulfiram 250 mg tablet See Rx Instructions PO DAILY Qty: 30 0RF Hold Instructions: Resume on 04/08/25. Take 1 tablet daily for 2 weeks and then a half tablet daily. Do not start medication until you have been alcohol free for at least 12 hours. Rx Instructions: Take 1 tablet daily for 2 weeks and then a half tablet daily. Do not start medication until you have been alcohol free for at least 12 hours. Date of admission: 03/30/25 03:28 Primary Care Provider: Tretn Shields Admitting Provider: Donna Omer Attending physician on admission: Donna Omer Condition: Improved Quality VTE Prophylaxis VTE prophylaxis: pharmacologic ordered
== END 2025-04-01 11:13 | disposition other institution (70) ==
LOC: ANHED 03:43 → ANHIMU 06:39 → ANH3MEDSUR 04-01 10:55 → ANHIMU 04-02 07:29
PROVIDERS: Internal Medicine; Admitting Provider General Practice; Emergency Provider Emergency Medicine; PCP Student in an Organized Health Care Education/Training Program; Visit Provider General Practice
DX: F10.239 Alcohol dependence with withdrawal, unspecified (principal); Y90.0 Blood alcohol level of less than 20 mg/100 ml; F33.1 Major depressive disorder, recurrent, moderate; I10 Essential (primary) hypertension; E11.9 Type 2 diabetes mellitus without complications; G47.33 Obstructive sleep apnea (adult) (pediatric); Z93.3 Colostomy status; Z81.1 Family history of alcohol abuse and dependence; Z83.3 Family history of diabetes mellitus; F17.210 Nicotine dependence, cigarettes, uncomplicated; F17.290 Nicotine dependence, other tobacco product, uncomplicated; E66.9 Obesity, unspecified; Z68.43 Body mass index [BMI] 50.0-59.9, adult
CPT/HCPCS: 36415; 80053; 80307; 81025; 82077; 82948; 83036; 83735; 85025; 85055; 93005; 96361; 96372; 96374; 96375; 97161; 97166; 97530; 97535; 99285; A9270; G0378; J1650; J2560; J3411; J3475; J7042; J7120

== ENCOUNTER 2025-06-19 10:11 | Emergency (ER) | payer BC, SELFPAY ==
[2025-06-19] VITALS (32 sets, daily range): BP systolic 96–134; BP diastolic 52–71; PULSE 73–120; RESP 12–28; TEMP 36.4; O2SAT 98–100
--- NOTE | ~2025-06-19 | XR_ITS ---
Examination: XR chest 2V Clinical History: dizziness, pt states hx of diabetes low iron deficiency Comparison: 11/14/2021 Technique: PA and Lateral Findings: Cardiomediastinal silhouette normal size and configuration. Lungs clear. No acute bony abnormality. IMPRESSION: 1. No acute cardiopulmonary findings. Reviewed, dictated and finalized at location R. [employer] SUPPORT OFFICER
--- NOTE | 2025-06-19 11:32 | ECG_ITS ---
Test Date: 2025-06-19 11:36:38 Measurements Intervals [place] Rate: 82 P: 27 OR: 159 QRS: 1 QRSD: 92 T: 25 QT: 367 QTc: 431 Interpretive Statements SINUS RHYTHM DELAYED PRECORDIAL R/S TRANSITION VOLTAGE CRITERIA FOR LVH NONSPECIFIC T-WAVE ABNORMALITY- INF/LAT LEADS BASELINE ARTIFACT- I, II, III, AVR, AVL, V1-V2 BORDERLINE ECG Compared to ECG 03/30/2025 01:54:27 No significant changes Electronically Signed On 06-19-2025 11:41:47 AUTOMOBILE DAMAGE APPRAISER by Gus Palafox D.O.
[2025-06-19 12:33] LABS: Hematocrit 33.6 % (37.0-47.0); Hemoglobin 10.8 g/dL (12.0-15.0); Immature Granulocyte Percent A 0.4 % (0-0.5); Lymphocytes Absolute Auto 2.25 K/mm3 (0.9-3.2); Mean Corpuscular HGB Conc 32.1 g/dl (32-36); Mean Corpuscular Hemoglobin 29.1 pg (26-34); Mean Corpuscular Volume 90.6 fl (80-100); Nucleated Red Blood Cells Absolute Auto 0.000 K/mm3 (0.0-0.012); Nucleated Red Blood Cells Perc 0.0 % (0.0-0.2); Platelet Count Result 244 k/mm3 (150-375); Red Blood Count 3.71 M/mm3 (4.2-5.4); White Blood Count 11.8 K/mm3 (4.5-10.0)
[2025-06-19 13:19] LABS: Alanine Aminotransferase 17 U/L (6-35); Albumin Level 4.3 g/dL (3.5-5.1); Alkaline Phosphatase 67 U/L (38-126); Anion Gap 5 mmol/L (4-12); Aspartate Amino Transferase 30 U/L (14-36); Bilirubin,Total 0.3 mg/dL (0.2-1.3); Blood Urea Nitrogen 10 mg/dL (7-17); Calcium 9.8 mg/dL (8.4-10.2); Carbon Dioxide 25 mmol/L (22-30); Chloride 105 mmol/L (98-107); Estimated CRCL calculation 160 ml/min; Estimated Glomerular Filt Rate > 60; Glucose 95 mg/dL (65-110); Potassium 4.2 mmol/L (3.4-5.0); Sodium 135 mmol/L (137-145); Total Protein 7.7 g/dL (6.3-8.2)
[2025-06-19] MEDS: SODIUM CHLORIDE 0.9% IV 1,000 ML 999 ML IV CONT (15:19)
--- NOTE | 2025-06-19 15:51 | ED_ITS ---
HPI - General Adult General Chief complaint: Dizziness Stated complaint: dizzy, lightheaded I know my iron is low Time Seen by Provider: 06/19/25 12:05 History of Present Illness HPI narrative: Patient is a 35-year-old female who presents emergency department with chief complaint of dizziness lightheadedness patient reports that she has had a heavy period and reports that she is concerned that she may be anemic. Related Data Home Medications ?Medication ?Instructions ?Recorded ?Confirmed ?Last Taken ?Type ferrous sulfate 324 mg (65 mg 324 mg PO DAILY 11/14/21 03/30/25 03/25/25 History iron) tablet,delayed release Allergies Allergy/AdvReac Type Severity Reaction Status Date / Time No Known Allergies Allergy Verified 06/19/25 10:14 Review of Systems 2 Review of Systems: A 10 system review of systems was completed on the patient and is negative except for what is stated in the HPI. Nursing and ancillary documentation was reviewed. [facility] Past Medical History Medical History Adult BMI 60.0-69.9 kg/sq m Obstructive sleep apnea Hypertension Fatty liver Anxiety and depression Surgical History Surgical History History of partial colectomy Colostomy in place H/O bladder repair surgery History of colon resection Family History Family History Mother Alcoholism Depression Diabetes mellitus Father Alcoholism Depression Sibling Alcoholism Asthma Depression Hypertension Grandparent Alcoholism Cancer Depression Thyroid disorder Grandparent Alcoholism Depression Mother Peptic ulcer disease Social History Social History Smoking packs per day: 0.25 Smoking cigarettes per day: 5.0 Years smoked: 26 Smoking pack-years: 6.50 Smoking status: Heavy tobacco smoker Tobacco type: cigarettes and e-cigarettes/vaping Second hand tobacco smoke exposure: No Additional smoking assessment comments: vapes a lot, smokes few cigarettes Alcohol intake: current Alcohol use details: has been 6 weeks with no alcohol Substance use: current Substance use type: marijuana Other substance usage details: rarely Lack of Transportation: No Lack of Food: Often True Current Housing: I Have Housing Concerned About Future Housing: YES Difficulty Paying Gas/Electric Bills: YES Difficulty Paying for Meds: YES Currently Unemployed: No Education: High School Diploma/GED Difficulty w/ Childcare or Family Care: No Spiritual care concerns: No Exam 2 Narrative: GENERAL: Well-appearing, well-nourished, and in no acute distress. HEAD: Normocephalic, atraumatic. EYES: PERRLA and EOMI. ENT: Nares clear, no rhinorrhea or epistaxis. Mucous membranes moist. NECK: Supple. CHEST: Clear to auscultation. No respiratory distress. HEART: Regular rate and rhythm. No murmur heard. Normal peripheral pulses. ABDOMEN: Soft, nontender, nondistended, normal active bowel sounds. EXTREMITIES: Normal range of motion. No edema. SKIN: Warm, dry, no rash. NEURO: No focal deficits. Alert and oriented x3. PSYCH: Normal mood and affect. Course Vital Signs Vital signs: Vital Signs Temperature 36.4 C 06/19/25 10:19 Pulse Rate 102 H 06/19/25 10:19 Respiratory Rate 20 06/19/25 10:19 Blood Pressure 134/71 06/19/25 10:19 Pulse Oximetry 100 06/19/25 10:19 Temperature 36.4 C 06/19/25 10:19 Pulse Rate 80 06/19/25 15:19 Respiratory Rate 16 06/19/25 15:19 Blood Pressure 96/52 L 06/19/25 15:19 Pulse Oximetry 99 06/19/25 15:19 MDM Differential Diagnosis Differential Diagnosis: Anemia, dehydration, orthostatic hypotension, dysrhythmia, UTI Patient had positive orthostatics and was given IV fluids Hemoglobin was 10.8 this time the patient does not require transfusion this was 2 g lower from her previous hemoglobin Lab Data [facility] Lab Attestation statement: I personally reviewed the patient's lab results. 06/19/25 12:27 06/19/25 12:27 Labs: Lab Results 06/19/25 06/19/25 Range/Units 11:41 12: WBC 11.8 H (4.5-10.0) K/mm3 RBC 3.71 L (4.2-5.4) M/mm3 Hgb 10.8 L (12.0-15.0) g/dL Hct 33.6 L (37.0-47.0) % MCV 90.6 (80-100) fl MCH 29.1 (26-34) pg MCHC 32.1 (32-36) g/dl RDW 13.8 (11.5-14.5) % Plt Count 244 D (150-375) k/mm3 MPV 12.4 H (7.4-10.4) fl Immature Gran % (Auto) 0.4 (0-0.5) % Neut % (Auto) 73.1 (45.5-73.1) % Lymph % (Auto) 19.0 (18.3-44.2) % Geary % (Auto) 4.2 (2.6-8.5) % Eos % (Auto) 2.7 (0-4.4) % Baso % (Auto) 0.6 (0.2-1.2) % Lymph # (Auto) 2.25 (0.9-3.2) K/mm3 Geary # (Auto) 0.5 (0.1-0.6) K/mm3 Eos # (Auto) 0.3 (0-0.3) K/mm3 Baso # (Auto) 0.1 (0.0-0.1) K/mm3 Abs Immat Gran (auto) 0.05 H (0.00-0.031) K/mm3 Absolute Neuts (auto) 8.6 H (1.3-6.7) K/mm3 Absolute Nucleated RBC 0.000 (0.0-0.012) K/mm3 Nucleated RBC % 0.0 (0.0-0.2) % Sodium Cancelled 135 L Potassium Cancelled 4.2 Chloride Cancelled 105 Carbon Dioxide Cancelled 25 Anion Gap Cancelled 5 BUN Cancelled 10 Creatinine Cancelled 0.59 L Estim Creat Clear Calc Cancelled 160 Estimated GFR Cancelled > 60 Glucose Cancelled 95 Calcium Cancelled 9.8 Total Bilirubin Cancelled 0.3 AST Cancelled 30 ALT Cancelled 17 Alkaline Phosphatase Cancelled 67 Total Protein Cancelled 7.7 Albumin Cancelled 4.3 Imaging Data Radiologist's impression: ITS Impressions Chest X-Ray 06/19/25 12:26 IMPRESSION: 1. No acute cardiopulmonary findings. Discharge Plan Discharge Clinical Impression: Orthostatic hypotension, Menorrhagia, Anemia Patient Disposition: Home Condition: Stable Instructions: Antibiotic Form, Hypotension (ED), Menorrhagia (ED), Anemia (ED) Patient Language: [place]ian Prescriptions: No Action tirzepatide 5 mg/0.5 mL pen injector 5 mg subcut WEEKLY Qty: 2 3RF Rx Instructions: for 4 weeks lisinopril 10 mg tablet 15 mg PO DAILY Qty: 135 1RF metformin [Glucophage XR] 500 mg tablet extended release 24 hr 500 mg PO BID Qty: 180 1RF ferrous sulfate 324 mg (65 mg iron) Tablet,Delayed Release (Dr/Ec) 324 mg PO DAILY thiamine HCl (vitamin B1) [Vitamin B-1] 100 mg Tablet 100 mg PO QAM Qty: 30 0RF folic acid 1 mg Tablet 1 mg PO DAILY Qty: 30 0RF multivitamin with folic acid [Thera] 400 mcg Tablet 1 tablet PO QAM Qty: 30 0RF (DME) blood-glucose meter [Blood Glucose Monitoring] Kit See Rx Instructions .Route Qty: 1 0RF Rx Instructions: Pt. to check blood sugar daily and when feeling symptoms of high or low blood sugar (DME) Blood Glucose Test Strip See Rx Instructions .ROUTE .MEDSUPPLY Qty: 100 3RF Rx Instructions: Pt. to check blood sugar once daily and when feeling symptoms of high or low blood sugar. Max testin times daily (DME) lancets 28 gauge misc See Rx Instructions .Route Qty: 100 3RF Rx Instructions: Use to check BS once daily and when BS is low. Max 3 times daily to check. atorvastatin [Lipitor] 10 mg tablet 10 mg PO DAILY Qty: 30 0RF cholecalciferol (vitamin D3) 1,250 mcg (50,000 unit) capsule 1,250 mcg PO WEEKLY Qty: 12 0RF disulfiram 250 mg tablet See Rx Instructions PO DAILY Qty: 30 0RF Rx Instructions: Take 1 tablet daily for 2 weeks and then a half tablet daily. Do not start medication until you have been alcohol free for at least 12 hours. Follow-up/Referrals: Angela Bennett MD [Primary Care Provider, Family Practice] Quinten Hadley MD [Physician, GRAVITY MANAGER] Time of Disposition: 17:36
== END 2025-06-19 17:38 | disposition home or self-care (01) ==
PROVIDERS: Emergency Medicine; Emergency Provider Emergency Medicine; PCP Family Medicine
DX: I95.1 Orthostatic hypotension (principal); N92.0 Excessive and frequent menstruation with regular cycle; D64.9 Anemia, unspecified; I10 Essential (primary) hypertension; G47.33 Obstructive sleep apnea (adult) (pediatric); F17.210 Nicotine dependence, cigarettes, uncomplicated; F17.290 Nicotine dependence, other tobacco product, uncomplicated; Z90.49 Acquired absence of other specified parts of digestive tract; Z79.899 Other long term (current) drug therapy
CPT/HCPCS: 36415; 71046; 80053; 85025; 93005; 96360; 99284; J7030

== ENCOUNTER 2025-07-07 15:45 | Outpatient (CLI) | payer BC, SELFPAY ==
--- NOTE | ~2025-07-07 | US_ITS ---
EXAMINATION: US transvaginal INDICATION: Menorrhagia Comparison:No prior studies for comparison. TECHNIQUE: Multiple endovaginal sonographic images of the pelvis performed. FINDINGS: The uterus measures 9 x 4.7 x 5.3 cm. The endometrial complex measures 7 mm. The right ovary measures 1.8 x 1.6 x 1.5 cm and the left ovary measures 3.8 x 3.1 x 3.1 cm. There are small follicles in each ovary. Normal doppler signal in both ovaries. There is no free fluid in the pelvis. There are no abnormal masses seen on either side. IMPRESSION: 1. Unremarkable pelvic ultrasound. Reviewed, dictated and finalized at location O. [employer]
== END 2025-07-07 15:46 | disposition home or self-care (01) ==
LOC: MICIMG 15:46
PROVIDERS: PCP Family Medicine; Visit Provider Student in an Organized Health Care Education/Training Program
DX: N92.0 Excessive and frequent menstruation with regular cycle (principal); E61.1 Iron deficiency
CPT/HCPCS: 76830